=== PATIENT | male | born 1965 | race African-American/Black ===

== ENCOUNTER → 2023-05-05 11:51 | Outpatient (REF) | payer OTHER, SELFPAY | LOC: HWRAD 11:51 | PROVIDERS: ATTENDING PHYSICIAN Student in an Organized Health Care Education/Training Program | DX: M25.532 Pain in left wrist (principal) | CPT/HCPCS: 73090; 73110 ==

== ENCOUNTER → 2024-01-11 08:13 | Outpatient (REF) | payer MEDICARE, OTHER, SELFPAY | LOC: RCS 08:13 | PROVIDERS: ATTENDING PHYSICIAN Internal Medicine Cardiovascular Disease; FAMILY PHYSICIAN Student in an Organized Health Care Education/Training Program | DX: I10 Essential (primary) hypertension (principal); I50.20 Unspecified systolic (congestive) heart failure | CPT/HCPCS: 93306 ==

== ENCOUNTER 2024-07-02 18:26 | Inpatient (IN) | payer MEDICARE, SELFPAY ==
[2024-07-02] VITALS (13 sets, daily range): BP systolic 160–198; BP diastolic 91–128; BMI 32.3; BMI 32.0
--- NOTE | 2024-07-02 13:41 | ED.GENMED ---
History of Present Illness
General
Chief Complaint: Change in Mental Status
Source: patient
Exam Limitations: none
Time Seen by Provider: 07/02/24 13:37
History of Present Illness
History of Present Illness:
See MDM
Past History
Past History
ED Past Medical History: CVA and HTN
ED Past Surgical History: Orthopedic
Social History
Tobacco: Non-smoker
Living: with family
Employment: Employed
Family History
Family History: Hypertension
Phy Exam
Physical Exam
Physical Exam:
See MDM
Course
Orders/Labs/Results
Orders:
Orders
07/02/24 13:11
Electrocardiogram (*1) Urgent
Reason for Study: Other
Other Reason for Exam: Possible Stroke
EKG- Treatment ONCE
07/02/24 13:33
CT Head W/o Iv Contrast Urgent
Comment:
Reason For Exam: change of mental
07/02/24 13:56
CPK [Creatine Phosphokinase] Urgent
Complete Blood Count/With Diff Urgent
Comprehensive Metabolic Panel Urgent
NT-proBNP Urgent
Comment: ADD ON
PTT Urgent
Prothrombin Time Urgent
Troponin I Urgent
07/02/24 14:37
CR Chest Portable - 1 View Urgent
Comment:
Reason For Exam: weakness, fatigue
Reason Study Needs to be Portable: Unable to Transport
07/02/24 14:38
Add On- LAB Urgent
Tests Added?: pro-BNP
07/02/24 14:43
Case Management Consult ONCE
Case Management Consult: Discharge Planning
Urinalysis Reflex To Culture Urgent
Date Specimen was Collected: 07/02/24
Time Specimen was Collected: 14:56
Abnormal Lab Results
07/02/24
13:56
MCHC 32.4 L g/dL
(33.0-37.0)
Absolute Neuts (auto) 6.8 H 10^3/uL
(1.4-6.5)
Lymphocytes % 17.5 L %
(20.5-51.1)
Chloride 110 H mmol/L
(98-107)
BUN 29 H mg/dl
(9-20)
Creatinine 3.7 H mg/dL
(0.7-1.3)
Calcium 10.6 H mg/dl
(8.4-10.2)
Total Bilirubin 1.4 H mg/dl
(0.2-1.3)
Alkaline Phosphatase 132 H U/L
(38-126)
Creatine Kinase 495 H U/L
(55-170)
Troponin I 0.056 H* ng/ml
07/02/24 13:56
07/02/24 13:56
Vital Signs
Initial and Last Documented VS:
Initial Vital Signs
Temp Pulse Resp BP Pulse Ox
98.5 F 108 20 182/120 99
07/02/24 13:05 07/02/24 13:05 07/02/24 13:05 07/02/24 13:05 07/02/24 13:05
Last Documented Vital Signs
Temp Pulse Resp BP Pulse Ox
97.6 F 97 15 182/112 98
07/02/24 13:56 07/02/24 14:00 07/02/24 14:00 07/02/24 13:56 07/02/24 14:00
MDM/Problems Addressed
Differential Diagnosis Includes:
HPI and MDM Narrative:
58-year-old male presenting for evaluation of frequent falls. Patient lives alone and apparently had 4 falls overnight. Patient is dismissing his symptoms. He denies any complaints. Patient states his friend is overreacting. On exam, there is
no evidence of trauma. Patient does have difficulty ambulating with his cane but states this is his baseline. Given his history, will obtain CT head and will obtain basic blood work
Physical exam
General: Well appearing and non-toxic
HEENT: protecting airway. Atraumatic
Neck: supple
CV: No evidence of cyanosis. Regular rate and rhythm
Resp: No accessory muscle use
Abd: Non-distended
Extremities: No deformities
Neuro: alert. Significant weakness to left arm and left leg which patient states is chronic
Psych: Normal affect
Skin: Intact
Problems Addressed including Acute and Chronic Conditions affecting care:
1. Frequent falls and weakness
Acuity: acute
Prognosis: stable
Details: Given prior history of stroke, will obtain CT head. Will obtain basic blood work
Updates
Patient found to have an elevated troponin. Prior records indicate is been elevated in the past when he was diagnosed with flash pulmonary edema. Will obtain chest x-ray.
His cousin is at bedside indicating that he has been more forgetful and weaker than normal
Chest x-ray clear. No evidence of pulmonary edema. Troponin likely elevated from CKD
Differential Diagnosis (but not limited to): Recurrent stroke, intracranial hemorrhage, deconditioning
Testing considered: Urinalysis but he denies symptoms
Drug therapy (if applicable): OTC meds, please see d/c instruction regarding Rx drugs
Amount and/or Complexity of Data Reviewed
Clinical info obtained from: Patient
External data reviewed: N/A
Labs I independently reviewed (but not limited to): Baseline CKD. Mild troponin elevation
Radiology: N/A
Pulse Ox: not hypoxic
EKG independently reviewed: Sinus tachycardia, left axis, no STEMI
Creative Art Therapist: Sinus rhythm
Critical Care: N/A
Risk of Complication:
Social Determinants of health: Good social support
Discussed with other providers: Hospitalist
Escalation of Care includes Admit/Obs: Given his prior strokes with new onset weakness, will admit for further workup
Occasional wrong word or 'sound a like' substitutions may have occurred due to the inherent limitations of voice recognition software. Read the chart carefully and recognize, using context, where substitutions have occurred.
*Critical Care Note
Total Time (30-74mins, 75-104mins- exclusive of procedures): Not Applicable
ED Attending Note
-
Portions of this chart may have been created with voice recognition software.� Occasional wrong word or��sound alike� substitutions may have occurred due to the inherent limitations of voice recognition software.
Discharge Plan
Departure
Patient Disposition: Admit
Date of Disposition: 07/02/24
Time of Disposition: 16:04
Admit to: Med/Surg
Presentation/result/management discussed w/ accepting MD/DO: Hospitalist
Discharge Problem:
Weakness, CKD (chronic kidney disease)
Prescriptions:
No Action
isosorbide mononitrate 30 mg Tablet Extended Release 24 Hr
30 mg PO DAILY Qty: 30 3RF
atorvastatin 40 mg Tablet
40 mg PO DAILY Qty: 30 3RF
carvedilol 25 mg Tablet
25 mg PO BID Qty: 60 3RF
amlodipine 10 mg tablet
10 mg PO DAILY Qty: 30 3RF
hydralazine 100 mg tablet
100 mg PO TID Qty: 90 3RF
aspirin 81 mg Tablet,Chewable
81 mg PO DAILY Qty: 30 3RF
potassium chloride 20 mEq Tablet Extended Release
20 meq PO DAILY
furosemide [Lasix] 40 mg tablet
80 mg PO BID
Referrals:
NONE,* [Family Provider] -
Interventions
Interventions:
*Risk Screen - Suicide Last Done: 07/02/24 13:05
*General Assessment Last Done: 07/02/24 13:05
*Neglect/Abuse Screening Last Done: 07/02/24 13:56
*ED- Fall Risk Assessment Last Done: 07/02/24 13:56
*ED COVID-19 Vaccine History Last Done: 07/02/24 13:56
ED- Pulmonary Assessment Last Done: 07/02/24 13:56
ED-Psychological Assessment Last Done: 07/02/24 13:56
ED- Neurological Assessment Last Done: 07/02/24 13:56
ED- Cardiac Assessment Last Done: 07/02/24 13:56
ED Swallowing Screen Last Done: 07/02/24 13:56
Discharge Date and Time
Print Language: MALTESE
[2024-07-02 14:08] LABS: % Basophils 0.7 % (0-2); % Eosinophils 1.4 % (0-6); % Immature Granulocytes 0.2 % (0-0.5); % Lymphocytes 17.5 % (20.5-51.1); % Monocytes 5.7 % (1.7-9.3); % Neutrophils 74.5 % (42.2-75.2); Absolute Basophils 0.1 10^3/uL (0-0.2); Absolute Eosinophils 0.1 10^3/uL (0-0.7); Absolute Lymphocytes 1.6 10^3/uL (1.2-3.4); Absolute Monocytes 0.5 10^3/uL (0.1-0.6); Absolute Neutrophils 6.8 10^3/uL (1.4-6.5); Hematocrit 44.7 % (39.0-52.0); Hemoglobin 14.5 g/dL (13.0-18.0); Mean Corp Hgb Conc. 32.4 g/dL (33.0-37.0); Mean Corpuscular Hgb 28.9 pg (27.0-31.0); Mean Platelet Volume 10.2 fL (7.4-10.4); Nucleated Red Blood Cells % 0 % (-); Platelet Count 235 10^3/uL (130-400); Red Blood Cell Count 5.02 10^6/uL (4.70-6.10); White Blood Cell Count 9.1 10^3/uL (4.8-10.8)
[2024-07-02 14:12] LABS: INR 0.99; PT 13.4 Sec (11.4-14.6)
[2024-07-02 14:13] LABS: APTT 26.6 Sec (23.4-35.0)
[2024-07-02 14:23] LABS: ALT (SGPT) 21 U/L (0-50); AST (SGOT) 35 U/L (17-59); Albumin 4.2 g/dl (3.5-5.0); Alkaline Phosphatase 132 U/L (38-126); Blood Urea Nitrogen 29 mg/dl (9-20); Calcium 10.6 mg/dl (8.4-10.2); Carbon Dioxide 26 mmol/L (22-30); Chloride 110 mmol/L (98-107); Creatine Phosphokinase 495 U/L (55-170); Estimated Creatinine Clearance 28 ml/min; Glucose 94 mg/dl (70-99); Potassium 3.7 mmol/L (3.5-5.1); Sodium 143 mmol/L (135-145); Total Bilirubin 1.4 mg/dl (0.2-1.3); Total Protein 7.8 g/dl (6.3-8.2); eGFR 18.15
[2024-07-02 14:31] LABS: Troponin I 0.056 ng/ml
[2024-07-02 15:15] LABS: NT-proBNP 7550 pg/ml
--- NOTE | 2024-07-02 15:19 | EDRN ---
the provider Dr. Hudson was notified of the pts elevated blood pressure
--- NOTE | 2024-07-02 15:57 | EDRN ---
Dr. Hudson currently at the [facility] bedside
--- NOTE | 2024-07-02 15:58 | CM ---
Initial assessment completed with patient and his cousin/primary contact, Marky Rodriguez #[phone]
Health insurance ; spoke with Jessenia in [place]; she will meet with patient's cousin, Marky
Pharmacy verified: [facility] @ [address] [place] [address], [facility]
Family Physician verified: Oh Ellis MD; [address] [place] [address], [address], [place], [place]; phone #[phone]
Patient lives alone in attached one floor in-law suite of his Aunt's home (she is listed as Secondary Contact); independent with ADLs; ambulates with a single point cane; no other DME
[place]ute rehab [place] of state stays after Stroke [phone]; outpatient therapy @ [facility]; has had home health/VN in 2023 that was sent by insurance company
Cousin reported that patient has renal disease;needed Peritoneal Dialysis last year; patient still urinates
Cousin will transport home
Discharge Plan to be determined; need PT/OT to assess patient
[2024-07-02 16:24] LABS: Urine Albumin 4+ (Neg - Trace); Urine Bilirubin Negative (Negative); Urine Character Clear (Clear); Urine Color Yellow; Urine Glucose Negative (Negative); Urine Ketone Negative (Negative); Urine Leukocyte Negative (Negative); Urine Nitrite Negative (Negative); Urine Occult Blood 3+ (Negative); Urine Urobilinogen Negative (Neg - 1+)
[2024-07-02 16:34] LABS: Urine Bacteria Few (Negative); Urine Red Blood Cell 0-2 /HPF (0-2); Urine Squamous Cell 0-2 /LPF (Few); Urine White Cell 0-2 /HPF (0-5)
--- NOTE | 2024-07-02 17:00 | HPS.HSE ---
Family Physician
-
Family Physician: * NONE
Chief Complaint
-
Falls, ran out of all of his medications due to inability to pay
History of Present Illness
58-year-old male from home where he lives alone and has had 4 falls overnight. His friend is the one making him come to the ER for evaluation he feels it is not that big of a deal however he has had history in the past of prior strokes with
residual left-sided weakness in 2019 at that time he qualified for Social Security disability however he cashed in a 401K from his job last year this put him over the amount to qualify for his 20% Medicaid therefore making his medications that he
needs for his chronic medical conditions unaffordable. He ran out of his medications including Imdur, Lasix, hydralazine, carvedilol, Norvasc for the past month. He did the same thing back in November and went up and flash pulmonary edema. I
have a group sales manager in their giving him papers to apply for permanent disability as now his income would be less than $2000 per month he should qualify for Medicaid to cover his prescriptions. I made it very clear to the patient running out of
medications can easily cause another stroke or flash pulmonary edema for him. He remembers falling yesterday only 1 he states he slipped out of the chair and called his cousin who lives in the same house. He lives in the [id number] suite that
was built on 4 the prior [id number]. The patient has impaired memory of the other 3 falls he told his friend. He is oriented to name, year, president however will speak very soft mumbles has significant short-term memory impairment is
unable to tell me anything that happened yesterday. He denies current headache, chest pain, palpitations, cough, shortness of breath, abdominal pain, nausea, vomiting, diarrhea, urinary symptoms.
He has patient has past medical history of flash pulmonary edema due to acute systolic and diastolic heart failure November 2022, CKD stage IV from hypertensive nephrosclerosis, non ischemic myocardial injury with elevated troponin, chronic anemia
iron deficiency, HTN.
Medical History
Past Medical History
Past Medical History: Reports Other
Additional Past Medical History:
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
flash pulmonary edema due to acute systolic and diastolic heart failure November 2022
CKD stage IV from hypertensive nephrosclerosis
non ischemic myocardial injury with elevated troponin
chronic anemia iron deficiency
HTN
Past Surgical History: Reports None
Social History
Tobacco: Non-smoker
Alcohol: None
Drug: None
Personal:
Living: Alone (Lives in [id number] suite at his cousins)
Employment: Disabled (As of 2019)
Family History
Family History: Other (Mother and father both alcoholics and smokers both , 1 brother renal failure, hypertension in his 40s 1 brother living unsure medical problems patient with 3 adult children 2 girls 1 boy healthy)
Allergies / Home Medications
Allergies reflects when Allergies were last updated in [employer].
Home Medications with original date entered in [employer]
Allergy/Medication List:
Allergies
Allergy/AdvReac Type Severity Reaction Status Date / Time
No Known Allergies Allergy Unverified 07/02/24 13:07
Home Medications
amlodipine 10 mg tablet 10 mg PO DAILY Blood Pressure #30 tabs 12/02/22
aspirin 81 mg chewable tablet 81 mg PO DAILY Blood Clot Prevention/Tx #30 tabs 12/02/22
atorvastatin 40 mg tablet 40 mg PO DAILY High Cholesterol #30 tabs 12/02/22
carvedilol 25 mg tablet 25 mg PO BID Blood Pressure #60 tabs 12/02/22
hydralazine 100 mg tablet 100 mg PO TID Blood Pressure #90 tabs 12/02/22
isosorbide mononitrate 30 mg tablet,extended release 24 hr 30 mg PO DAILY #30 tabs 12/02/22
furosemide 40 mg tablet (Lasix) 80 mg PO BID 07/02/24
potassium chloride 20 mEq tablet,extended release 20 meq PO DAILY 07/02/24
Review of Systems
-
History Source: Patient
A 12 point ROS was completed and negative except as noted: Yes
Constitutional: Reports Other (Short-term memory impairment cannot recall what happened yesterday unsure if this is from prior stroke or new); Denies Fever or Chills
EENT: Denies Sore Throat or Runny Nose
Respiratory: Denies Cough or Trouble Breathing
Cardiac: Denies Chest Pain, Palpitations or Syncope
Abdomen/GI: Denies Abdominal Pain, Nausea, Vomiting, Diarrhea, Constipated, Bloody Stools or Black Stools
: Denies Dysuria, Frequency, Flank Pain, Incontinence, Difficulty Voiding, Urgency, Bleeding or Dark Urine
Musculoskeletal: Reports Edema (Left lower extremity edema +2 in stroke leg with limited movement compared to right unsure of old or new); Denies Joint Pain
Skin: Denies Itching or Rash
Neurological: Reports Weakness (Chronic left-sided left arm limited to shoulder with spastic movements left leg can lift off of bed with very intense spastic movements at 10 degrees); Denies Dizzy or Headache
Endocrine: Reports No Symptoms
Hematologic/Lymphatic: Reports No Symptoms
Psych: Reports Calm
Physical Exam
Vital Signs
Vital Signs
Temp Pulse Resp BP Pulse Ox
97.6 F 97 15 182/112 98
07/02/24 13:56 07/02/24 14:00 07/02/24 14:00 07/02/24 13:56 07/02/24 14:00
Physical Exam
General: Comfortable and Conversant; No Pain, Fever or Chills
HEENT: NormoCephalic, Anicteric, Moist mucous membranes, PERRLA, [place] Conjunctivae and No Ptosis
Respiratory: Clear; No Wheezes, Rales or Rhonchi
Cardiac: S1/S2, Regular Rhythm and Peripheral Edema (Left leg +2, right leg none); No Murmur, Rub or Gallop
Breast: Deferred by me
GI: Soft, Non Tender, Non Distended, Normal Bowel Sounds and No Hepatosplenomegaly
Rectal: Deferred by Provider
Genito-urinary: Deferred by me
Musculoskeletal: No Clubbing, No Cyanosis and Other (Left leg edema +2 compared to right leg unsure of old or new, chronic left-sided left arm limited to shoulder with spastic movements left leg can lift off of bed with very intense spastic
movements at 10 degrees)
Skin: Warm and Dry
Neuro: Awake, Alert, Oriented (To name, president, place but not all of history not what happened yesterday unsure of review of systems and past medical history), Cranial Nerves Intact, No Sensory Deficits and Other (Chronic left-sided left arm
limited to shoulder with spastic movements left leg can lift off of bed with very intense spastic movements at 10 degrees); No Slurred Speech, Facial Droop or Tremors
Psych: Calm
Laboratory Results
-
07/02/24 13:56
07/02/24 13:56
Laboratory Results
PT 13.4 Sec (11.4-14.6) 07/02/24 13:56
INR 0.99 07/02/24 13:56
APTT 26.6 Sec (23.4-35.0) 07/02/24 13:56
Total Bilirubin 1.4 mg/dl (0.2-1.3) H 07/02/24 13:56
AST 35 U/L (17-59) 07/02/24 13:56
ALT 21 U/L (0-50) 07/02/24 13:56
Alkaline Phosphatase 132 U/L (38-126) H 07/02/24 13:56
Troponin I 0.056 ng/ml H* 07/02/24 13:56
Data Reviewed
-
CT Scan: Report Reviewed by me
Lab Data: Labs Reviewed by me
Impression/Plan
-
Impression/plan:
Admit to telemetry
#Falls x 4 unclear concern for possible stroke
- Orthostatic vitals
- MRI brain concern for strokes
- PT/OT consult
Case management working on giving patient reapplication for permanent disability to give to his PCP
CT head:No acute intracranial infarction or hemorrhage.
Periventricular deep white matter hypodensity and prominence of the ventricles, cisterns and sulci greater than expected for age, but most likely chronic.
#CVA affecting left side body 2020 with chronic ambulatory dysfunction using quad cane
Limited movement left arm to shoulder level, chronic left leg swelling with limited movement, spastic movement left upper arm and left lower leg
- Continue aspirin 81 mg daily, atorvastatin 40 mg daily
#Hypertensive urgency due to med noncompliance
-No history of FREDY during workup in November 2022
BP 182/112
-Will give carvedilol 25 mg now, Norvasc 10 mg now, hydralazine 100 mg
- Ran out of hydralazine, carvedilol, Norvasc, Imdur -1 month ago unable to afford due to cost
# CKD stage IV, possibly from hypertensive nephrosclerosis.
# November 2022 secondary hypertension work up was ordered per Renal (metanephrine, dopamine level, electrophoresis, renal artery duplex no evidence of FREDY).
Creat 3.7 prior is 3.3 on 12/02/22( July 2.25 jul 2021)
- Hold Lasix
- Follow BMP in a.m.
#Left leg swelling concern for DVT
- Check venous Doppler
#Hx Flash pulmonary edema due to chronic systolic and diastolic heart failure was due to running out of meds
This was associated with non-[place] troponin elevation and required BiPAP.
- cont Imdur 30 mg daily , hydralazine 100 mg tid, carvedilol, 25 mg bid , norvasc 10 mg daily
-Hold Lasix 80 twice daily due to creat
CXR: Low lung volumes, no acute cardiopulmonary process
ECHO 01/11/24 : Ef 56%, no wall abnormalities nml diastolic, mild lvf , no valvular pathology
Echo 11/30/2022 showed Global hypokinesis, EF 39%, Stage III diastolic dysfunction, Moderate mitral regurgitation and estimated pulmonary artery pressure of 55-60 mmHg.
#Chronic anemia
#Hx iron def anemia- received Iv iron duing that stay
The patient's hemoglobin has been stable at around hgb 14.3
DVT prophylaxis
SCDs
Full code
--- NOTE | 2024-07-02 18:06 | EDRN ---
Dr. Hudson has been notified of consistently elevated blood pressures
--- NOTE | 2024-07-02 18:08 | EDRN ---
hospitalist Dr. Benton currently at the pts bedside and this RN notified the provider of the pts consistently elevated blood pressures
--- NOTE | 2024-07-02 18:21 | W.PN.UPDATE ---
Update Note
Progress Note Update
This is an addendum to the H&P written by Promise Leyva on 07/02/2024. Patient seen examined independently with [facility] REPAIRER.
58-year-old male past medical history of CHF, hypertension, hyperlipidemia, CKD 4, anemia, CVA in 2020 with short-term memory impairment, left-sided weakness and spasticity, diet controlled type 2 diabetes, presenting with 4 falls since yesterday.
Patient not taking his medications due to inability to afford due to lack of Medicaid coverage. He denies any neurological complaints, headache, chest pain or shortness of breath.
Blood pressure 182/120.
Left lower extremity much more swollen than the right.
Labs show creatinine of 3.7 from 3.3. Cardiac BNP of 7500.
CT head shows no acute abnormality. Chest x-ray shows no acute cardiopulmonary process.
Concern for multiple falls unclear etiology. Check orthostatic vital signs, check MRI brain to evaluate for worsening strokes. Hypertensive urgency secondary to medication noncompliance. Resume oral antihypertensive medications. Patient has
slight worsening of kidney function likely due to worsening hypertensive nephrosclerosis. Hold Lasix for now.
Check venous ultrasound due to asymmetric left lower extremity swelling.
PT OT, case management for medication coverage.
--- NOTE | 2024-07-02 18:36 | EDRN ---
per Dr. Benton the pt is to have PO antihypertensive medication before IV antihypertensive medication due to 'the pt is non compliant with his meds so he should have PO first'
[2024-07-02] MEDS: APRESOLINE 100 MG PO (18:45)
[2024-07-02] MEDS: ASPIR LOW (ENTERIC COATED) 81 MG PO (18:45)
[2024-07-02] MEDS: LIPITOR 40 MG PO (20:05)
[2024-07-02] MEDS: COREG 25 MG PO (20:06)
[2024-07-02] MEDS: NORVASC 10 MG PO (20:06)
--- NOTE | 2024-07-02 21:02 | W.PN.UPDATE ---
Update Note
Progress Note Update
Problem list addendum:
Patient now remembering he is end-stage renal disease patient on peritoneal dialysis
- Review of outpatient records shows an entry admission of below:
-CONSULT NEPHRO
-Creat 3.7 was increased from 3 .3 on 12/02/2022
Dec, 2023 ESRD (end stage renal disease) (ICD-10 - N18.6) Now on peritoneal dialysis. He is also considering renal transplant. His brother has offered to be a live donor. Workup ongoing with nephrology and transplant team at [facility]. His
online content coordinator is Massiel , fax Echocardiogram shows normalization of ejection fraction with better blood pressure control. Patient had no significant coronary artery disease on catheterization in 2021.Patient is
stable from cardiac standpoint to proceed with workup for renal transplant.
--- NOTE | 2024-07-02 22:30 | PTCARENOTE ---
Pt admitted to 409-2, pulled over to bed. AAOx3. Able to make needs known, bed alarm placed due to history of falls. Call brownlee within reach.
[2024-07-02] MEDS: HEPARIN 5000 UNITS SC (22:54)
[2024-07-02] MEDS: APRESOLINE 10 MG IV (23:46)
[2024-07-03] VITALS (8 sets, daily range): BP systolic 121–170; BP diastolic 67–91; PULSE 74–78; BMI 32.0
[2024-07-03 08:12] LABS: % Basophils 0.3 % (0-2); % Eosinophils 0.3 % (0-6); % Immature Granulocytes 0.3 % (0-0.5); % Lymphocytes 13.2 % (20.5-51.1); % Monocytes 4.3 % (1.7-9.3); % Neutrophils 81.6 % (42.2-75.2); Absolute Lymphocytes 0.9 10^3/uL (1.2-3.4); Absolute Monocytes 0.3 10^3/uL (0.1-0.6); Absolute Neutrophils 5.5 10^3/uL (1.4-6.5); Hematocrit 41.9 % (39.0-52.0); Hemoglobin 13.6 g/dL (13.0-18.0); Mean Corp Hgb Conc. 32.5 g/dL (33.0-37.0); Mean Corpuscular Hgb 28.9 pg (27.0-31.0); Nucleated Red Blood Cells % 0 % (-); Platelet Count 204 10^3/uL (130-400); Red Blood Cell Count 4.71 10^6/uL (4.70-6.10); Red Cell Dist. Width 13.7 % (11.5-14.5); White Blood Cell Count 6.8 10^3/uL (4.8-10.8)
--- NOTE | 2024-07-03 08:41 | W.PN.HOSP.TC ---
Addendum entered and electronically signed by Reymundo Corcoran MD 07/03/24 17:20:
CKD stage 5, correction-->not on PD--> nephrology looking into that.
Addendum entered and electronically signed by Reymundo Corcoran MD 07/03/24 17:14:
no need for mri per neurology
Original Note:
Today's Communication/Plan
-
Neurology eval
Assessment / Plan
Assessment / Plan
Physical exam:
General: Chronically ill
HEENT: Normocephalic, Atraumatic and Moist Mucous Membranes
Respiratory: Clear to Auscultation; Negative Wheezes, Rales or Rhonchi
Cardiac: Regular Rhythm and S1/S2
GI: Soft, Nontender and Nondistended
Musculoskeletal: No Clubbing, No Cyanosis and No Edema
Neuro: Awake, Alert and Oriented, left chronic hemiparesis present.
Psych: Calm
A/P:
Multiple falls and ambulatory dysfunction:
Concerns for recrudescence of stroke or new stroke or HTN related versus other etiologies
Neurology consult-discussed with neurology via [place] text
On aspirin and statin
Brain MRI ordered upon admission-will discuss with neurology if this is required in the setting of our machine being broken down and there are some delays in this setting.
Updated daughter over the phone today
Hypertensive urgency:
Blood pressure improved
Continue Coreg, hydralazine, Imdur, hydralazine
Monitor blood pressure closely and adjust medications accordingly
End-stage renal disease on peritoneal dialysis:
Nephrology consult
PD per nephrology
History of CVA with left hemiparesis:
On antiplatelet and statin
History of chronic diastolic CHF:
Managing volume with PD
Prior systolic dysfunction but improved.
Hyperlipidemia:
Continue atorvastatin 40 mg p.o. daily
DVT prophylaxis:
Heparin SQ
CODE STATUS:
Full code
Total time spent on today's encounter was 52 minutes which included time spent in counseling the patient/family regarding diagnosis and treatment plan as listed above, goals of care, and symptom management. Case was discussed with nursing staff,
specialists, and care coordinators/case management. All labs and imaging personally reviewed by me. Remainder the time spent in detailed review of previous records, lab data, imaging, and other medical provider documentation.
Anticipated Discharge: 24 - 48 hours
Subjective/Interval History
-
Date of Service: July 03, 2024
No worsening weakness. Blood pressure stable. Afebrile
Objective Data
-
Labs:
Laboratory Results
07/03/24
06:53
WBC 6.8
Hgb 13.6
Hct 41.9
Plt Count 204
Sodium Pending
Potassium Pending
Chloride Pending
Carbon Dioxide Pending
BUN Pending
Creatinine Pending
Glucose Pending
Calcium Pending
Total Bilirubin Pending
AST Pending
ALT Pending
Alkaline Phosphatase Pending
Vital Signs:
Vital Signs
Temp Pulse Resp BP Pulse Ox
98.3 F 79 20 170/89 99
07/03/24 07:31 07/03/24 07:31 07/03/24 07:31 07/03/24 07:31 07/03/24 07:31
I&O
07/02/24 07/03/24 07/04/24
06:59 06:59 06:59
Intake Total 240 / 240
Output Total 650 / 650
Balance -410 / -410
[2024-07-03 08:49] LABS: ALT (SGPT) 18 U/L (0-50); AST (SGOT) 30 U/L (17-59); Albumin 3.9 g/dl (3.5-5.0); Alkaline Phosphatase 112 U/L (38-126); Blood Urea Nitrogen 33 mg/dl (9-20); Calcium 10.4 mg/dl (8.4-10.2); Carbon Dioxide 24 mmol/L (22-30); Chloride 107 mmol/L (98-107); Estimated Creatinine Clearance 26 ml/min; Glucose 124 mg/dl (70-99); HDL Cholesterol 55 mg/dl; LDL Cholesterol, Calculated 103 mg/dl; Potassium 3.6 mmol/L (3.5-5.1); Sodium 143 mmol/L (135-145); Total Bilirubin 1.5 mg/dl (0.2-1.3); Total Cholesterol 168 mg/dl (50-199); Total Protein 6.9 g/dl (6.3-8.2); Triglyceride 51 mg/dl (10-149); Very Low Density Lipoprotein 10 mg/dl (0-30); eGFR 17.04
[2024-07-03] MEDS: HEPARIN 5000 UNITS SC ×2 (09:17→21:11)
[2024-07-03] MEDS: NORVASC 10 MG PO (09:18)
[2024-07-03] MEDS: LOW STRENGTH ASPIRIN 81 MG PO (09:18)
[2024-07-03] MEDS: COREG 25 MG PO ×2 (09:18→21:10)
[2024-07-03] MEDS: IMDUR (EXTENDED RELEASE) 30 MG PO (09:18)
[2024-07-03] MEDS: LIPITOR 40 MG PO (09:18)
[2024-07-03] MEDS: APRESOLINE 100 MG PO ×3 (09:19→22:59)
--- NOTE | 2024-07-03 16:03 | W.CON.NEPH ---
Addendum entered and electronically signed by Vita Tijerina MD 07/03/24 16:51:
no emergent need of [employer]
will wait for records
Original Note:
Consultation
-
Date/Time Consultation Requested: 07/02/242229
Date/Time Consultation Performed: 07/03/24 1430
Requesting Provider: Forrest Judge
Performing Provider: Vita Vaughan
Reason for Consultation: CKD 4vs 5
Medical History
-
Chief Complaint: Falls at home and ran out of meds
History of Present Illness:
58-year-old male with PMH of HTN on Amlodipine, coreg, hydralazine, cardiomyopathy recovered EF on lasix, CVA with residual left hemiparesis, DM not on meds, HLD on statin presented from home for recurrent 4 falls overnight. Reportedly he lives
alone and his friend made him to come to the ER for evaluation. Due to his insurance coverage issues reports unable to fill his medications for past month. He does not know when was the last time he took meds. HIs BPs were high in 180 range on
admit. He also reportedly was on PD and has been off since February 2024-I do not have records to review this, he still has PD catheter. he reportedly seen by Nephro at [place] and even had eval for transplant too on reviewing records from [facility].
Reportedly similar presentation in the past Sep where he noted to have flash pulmonary edema. The patient has impaired memory so history is obtained through the chart and very little from pt. He denies current headache, chest pain, palpitations,
cough, shortness of breath, abdominal pain, nausea, vomiting, diarrhea, urinary symptoms. His cr on admit was at 3.7 and today at 3.9. Last cr 3.3 in 05/2023. nephrology asked to eval CKD.
Past Medical History
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
flash pulmonary edema due to acute systolic and diastolic heart failure November 2022
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
Cardiomyopathy
CHF recovered EF
HLD
DM
SHPTH
chronic anemia iron deficiency
HTN
Past Surgical History: Cholecystectomy and Other (left heart cath 2021)
Social History
Tobacco: Non-Smoker
Alcohol: None
Drug: None
Personal:
Living: Alone (Lives in [address] at his cousins)
Employment: Disabled
Family History
Mother and father both alcoholics and smokers both , 1 brother renal failure, drug abuse, hypertension in his 40s 1 brother living unsure medical problems patient with 3 adult children 2 girls 1 boy healthy
Allergies / Home Medications
Allergy/AdvReac Type Severity Reaction Status Date / Time
No Known Allergies Allergy Unverified 07/02/24 13:07
�Medication �Instructions �Recorded �Confirmed �Type
amlodipine 10 mg tablet 10 mg PO DAILY Blood Pressure #30 12/02/22 07/02/24 Rx
tabs
aspirin 81 mg chewable tablet 81 mg PO DAILY Blood Clot 12/02/22 07/02/24 Rx
Prevention/Tx #30 tabs
atorvastatin 40 mg tablet 40 mg PO DAILY High Cholesterol 12/02/22 07/02/24 Rx
#30 tabs
carvedilol 25 mg tablet 25 mg PO BID Blood Pressure #60 12/02/22 07/02/24 Rx
tabs
hydralazine 100 mg tablet 100 mg PO TID Blood Pressure #90 12/02/22 07/02/24 Rx
tabs
isosorbide mononitrate 30 mg 30 mg PO DAILY #30 tabs 12/02/22 07/02/24 Rx
tablet,extended release 24 hr
furosemide 40 mg tablet (Lasix) 80 mg PO BID 07/02/24 07/02/24 History
potassium chloride 20 mEq 20 meq PO DAILY 07/02/24 07/02/24 History
tablet,extended release
Review of Systems
-
unable to obtain, pt memory impairment
Physical Exam
Vital Signs
Vital Signs
Temp Pulse Resp BP Pulse Ox
98.4 F 81 18 122/79 98
07/03/24 15:06 07/03/24 15:06 07/03/24 15:06 07/03/24 15:06 07/03/24 15:06
Lab Results
WBC 6.8 10^3/uL (4.8-10.8) 07/03/24 06:53
RBC 4.71 10^6/uL (4.70-6.10) 07/03/24 06:53
Hgb 13.6 g/dL (13.0-18.0) 07/03/24 06:53
Hct 41.9 % (39.0-52.0) 07/03/24 06:53
Plt Count 204 10^3/uL (130-400) 07/03/24 06:53
Sodium 143 mmol/L (135-145) 07/03/24 06:53
Potassium 3.6 mmol/L (3.5-5.1) 07/03/24 06:53
Chloride 107 mmol/L (98-107) 07/03/24 06:53
Carbon Dioxide 24 mmol/L (22-30) 07/03/24 06:53
BUN 33 mg/dl (9-20) H 07/03/24 06:53
Creatinine 3.9 mg/dL (0.7-1.3) H 07/03/24 06:53
eGFR 17.04 07/03/24 06:53
Glucose 124 mg/dl (70-99) H 07/03/24 06:53
Calcium 10.4 mg/dl (8.4-10.2) H 07/03/24 06:53
Nbh-Y-Wuhptudllrv Pept 7550 pg/ml 07/02/24 13:56
Albumin 3.9 g/dl (3.5-5.0) 07/03/24 06:53
Physical Exam
General: Awake, Alert, Oriented, No Distress and Nontoxic
HEENT: EOMI, Anicteric and Neck Supple
Respiratory: Clear, Normal Excursion and Nonlabored Respirations
Cardiac: S1/S2 and Regular Rate/Rhythm
Breast: Deferred by me
Abdomen: Soft, Nontender and Nondistended
Musculoskeletal: Edema (1+ left>right)
Skin: No Rash
Neuro: Other (left hemiparesis)
Psych: Appropriate
Vascular Access: Other (PD catheter, small scab seem old. No erythema or drainage )
Assessment/Plan
-
IMP:
Multiple falls and ambulatory dysfunction
Hypertensive urgency
CKD5-was on PD not actively receiving per history since Feb , was at [facility]
End-stage renal disease on peritoneal dialysis:
History of CVA with left hemiparesis
History of chronic diastolic CHF
Hyperlipidemia
mild hypercalcemia
h/o SHPTH
PD catheter left abd
plan:
A/w multiple falls at home prior CVA with amb dysfunction
also ran out of meds due to insurance coverage issues
CKD likely 5, was on PD for few months what it seem to be however I do not have details of it
will need records from [facility] Dr Eden -requested
monitor cr and UOP, ok to resume lasix
possible chr LE edema , no DVT on US
Bp improved after resuming meds
mild hypercalcemia-check PTH, not on erlin meds
monitor labs and wts
neuro eval
left VM on daughter phone
d/w nursing
--- NOTE | 2024-07-03 17:09 | CON.NEURO ---
Neuro Assessment/Plan
Assessment
Head CT imgs reviewed, extensive microvascular changes, chronic stroke right external capsule
Stroke, chronic left spastic alfredo, worsening weakness due to recrudescence of stroke, in the setting of decompensated medical problems from being off his meds
no further workup needed, doubtful of new cerebrovascular event, and even if so, he would still be on the same meds
Plan
no further neuro workup
ASA 81
Lipitor 40
Consultation
Order
Date of Consultation: 07/03/24
Requesting Provider: Reymundo Corcoran
Reason for Consult: acute on chronioc left sided weakness
Subjective/Objective
Subjective Data
Date of Service: July 03, 2024
58-year-old male from home h/o stroke, residual left spastic hemiparesis, presents with multiple falls, ran out of medications x1 month as he recently moved to [place] and had insurance problems. When he presented, his left sided weakness worse than
baseline; He was restarted on his outpatient meds, and this afternoon he reports his left sided weakness is back to baseline.
Objective Data
Vital Signs
Temp Pulse Resp BP Pulse Ox
36.9 C 78 18 144/73 98
07/03/24 15:06 07/03/24 16:42 07/03/24 15:06 07/03/24 16:42 07/03/24 15:06
Lab Results
07/03/24 06:53
07/03/24 06:53
PT 13.4 Sec (11.4-14.6) 07/02/24 13:56
INR 0.99 07/02/24 13:56
APTT 26.6 Sec (23.4-35.0) 07/02/24 13:56
Sodium 143 mmol/L (135-145) 07/03/24 06:53
Potassium 3.6 mmol/L (3.5-5.1) 07/03/24 06:53
BUN 33 mg/dl (9-20) H 07/03/24 06:53
Glucose 124 mg/dl (70-99) H 07/03/24 06:53
Calcium 10.4 mg/dl (8.4-10.2) H 07/03/24 06:53
Vyz-P-Geuogqnjlql Pept 7550 pg/ml 07/02/24 13:56
LDL Cholesterol, Calc 103 mg/dl 07/03/24 06:53
Patient Allergies
No Known Allergies Allergy (Unverified 07/02/24 13:07)
Physical Exam
-
AAOx3, speech clear, language intact, slow to process, short term memory loss
VFF, EOMI
Left spastic hemiparesis.
Medications
-
Active Medications
Generic Name Dose Route Start Last Admin
Trade Name Freq PRN Reason Stop Dose Admin
Acetaminophen 650 mg 07/02/24 22:01
Acetaminophen 325 Mg Tablet PO 07/30/24 22:00
Q4HPRN PRN
mild pain/LIZAMA/temp> 100.4F
Amlodipine Besylate 10 mg 07/03/24 08:00 07/03/24 09:18
Amlodipine 10 Mg Tablet PO 07/31/24 07:59 10 mg
DAILY GLENN Administration
Aspirin 81 mg 07/03/24 08:00 07/03/24 09:18
Aspirin 81 Mg Chewable Tablet PO 07/31/24 07:59 81 mg
DAILY GLENN Administration
Atorvastatin Calcium 40 mg 07/03/24 08:00 07/03/24 09:18
Atorvastatin (Lipitor) 40 Mg Tablet PO 07/31/24 07:59 40 mg
DAILY GLENN Administration
Carvedilol 25 mg 07/03/24 08:00 07/03/24 09:18
Carvedilol 25 Mg Tablet PO 07/31/24 07:59 25 mg
BID GLENN Administration
Heparin Sodium 5,000 units 04/08/25 22:01 07/03/24 09:17
Heparin 5,000 Units/Ml 1 Ml Vial SC 07/30/24 22:00 5,000 units
Q12 GLENN Administration
Hydralazine HCl 10 mg 07/02/24 18:19 07/02/24 23:46
Hydralazine 20 Mg/Ml Vial IV 07/30/24 18:18 10 mg
Q6HPRN PRN Administration
sbp>165 bhanu>110
Hydralazine HCl 100 mg 07/03/24 08:00 07/03/24 16:42
Hydralazine 50 Mg Tablet PO 07/31/24 07:59 100 mg
TID GLENN Administration
Isosorbide Mononitrate 30 mg 07/03/24 08:00 07/03/24 09:18
Isosorbide Mononitrate 30 Mg Extended Release Tablet PO 07/31/24 07:59 30 mg
DAILY GLENN Administration
Sodium Chloride 0 flush 07/02/24 19:00
Sodium Chloride 0.9% (Flush) Syringe IV 07/30/24 18:59
PER PROTOCOL GLENN
Home Medications
�Medication �Instructions �Recorded
amlodipine 10 mg tablet 10 mg PO DAILY Blood Pressure #30 12/02/22
tabs
aspirin 81 mg chewable tablet 81 mg PO DAILY Blood Clot 12/02/22
Prevention/Tx #30 tabs
atorvastatin 40 mg tablet 40 mg PO DAILY High Cholesterol 12/02/22
#30 tabs
carvedilol 25 mg tablet 25 mg PO BID Blood Pressure #60 12/02/22
tabs
hydralazine 100 mg tablet 100 mg PO TID Blood Pressure #90 12/02/22
tabs
isosorbide mononitrate 30 mg 30 mg PO DAILY #30 tabs 12/02/22
tablet,extended release 24 hr
furosemide 40 mg tablet (Lasix) 80 mg PO BID 07/02/24
potassium chloride 20 mEq 20 meq PO DAILY 07/02/24
tablet,extended release
[2024-07-04] VITALS (7 sets, daily range): BP systolic 115–172; BP diastolic 71–119; PULSE 73–94; BMI 31.2
[2024-07-04 06:52] LABS: % Basophils 0.5 % (0-2); % Eosinophils 0.5 % (0-6); % Immature Granulocytes 0.3 % (0-0.5); % Lymphocytes 15.6 % (20.5-51.1); % Monocytes 5.2 % (1.7-9.3); % Neutrophils 77.9 % (42.2-75.2); Absolute Lymphocytes 1.4 10^3/uL (1.2-3.4); Absolute Monocytes 0.5 10^3/uL (0.1-0.6); Absolute Neutrophils 6.9 10^3/uL (1.4-6.5); Hematocrit 39.4 % (39.0-52.0); Hemoglobin 12.7 g/dL (13.0-18.0); Mean Corp Hgb Conc. 32.2 g/dL (33.0-37.0); Mean Corpuscular Hgb 28.5 pg (27.0-31.0); Mean Corpuscular Volume 88.3 fL (80.0-94.0); Mean Platelet Volume 11.2 fL (7.4-10.4); Nucleated Red Blood Cells % 0 % (-); Platelet Count 200 10^3/uL (130-400); Red Blood Cell Count 4.46 10^6/uL (4.70-6.10); Red Cell Dist. Width 13.9 % (11.5-14.5); White Blood Cell Count 8.8 10^3/uL (4.8-10.8)
[2024-07-04 07:28] LABS: Calcium 10.2 mg/dl (8.4-10.2)
[2024-07-04 07:31] LABS: ALT (SGPT) 17 U/L (0-50); AST (SGOT) 29 U/L (17-59); Albumin 3.3 g/dl (3.5-5.0); Alkaline Phosphatase 103 U/L (38-126); Blood Urea Nitrogen 42 mg/dl (9-20); Carbon Dioxide 28 mmol/L (22-30); Chloride 107 mmol/L (98-107); Estimated Creatinine Clearance 22 ml/min; Glucose 110 mg/dl (70-99); Potassium 3.4 mmol/L (3.5-5.1); Sodium 142 mmol/L (135-145); Total Bilirubin 1.1 mg/dl (0.2-1.3); Total Protein 6.3 g/dl (6.3-8.2); eGFR 14.35
[2024-07-04] MEDS: IMDUR (EXTENDED RELEASE) 30 MG PO (08:07)
[2024-07-04] MEDS: APRESOLINE 100 MG PO ×3 (08:07→20:18)
[2024-07-04] MEDS: NORVASC 10 MG PO (08:08)
[2024-07-04] MEDS: HEPARIN 5000 UNITS SC ×2 (08:08→20:17)
[2024-07-04] MEDS: LOW STRENGTH ASPIRIN 81 MG PO (08:09)
[2024-07-04] MEDS: COREG 25 MG PO ×2 (08:09→20:17)
[2024-07-04] MEDS: LIPITOR 40 MG PO (08:09)
--- NOTE | 2024-07-04 08:51 | W.PN.HOSP.TC ---
Today's Communication/Plan
-
Monitor renal function
Assessment / Plan
Assessment / Plan
Physical exam:
General: Chronically ill
HEENT: Normocephalic, Atraumatic and Moist Mucous Membranes
Respiratory: Clear to Auscultation; Negative Wheezes, Rales or Rhonchi
Cardiac: Regular Rhythm and S1/S2
GI: Soft, Nontender and Nondistended
Musculoskeletal: No Clubbing, No Cyanosis and No Edema
Neuro: Awake, Alert and Oriented, left chronic hemiparesis present.
Psych: Calm
A/P:
Multiple falls and ambulatory dysfunction:
Likely due to recrudescence of stroke
Appreciated neurology consult
On aspirin and statin
Brain MRI ordered upon admission-after discussion with neurology no need for MRI.
CT head no acute intracranial normalities.
Updated daughter over the phone yesterday
PT OT eval
manager research and development for discharge disposition
Discharge planning once cleared by nephrology
Chronic kidney disease stage V:
Not on peritoneal dialysis or HD
Renal function worsening today
Nephrology following and awaiting for final determination
Discharge planning once cleared by nephrology
Hypokalemia:
Replete and trend
Hypertensive urgency:
Blood pressure improved
Continue Coreg, hydralazine, Imdur, hydralazine
Monitor blood pressure closely and adjust medications accordingly
History of CVA with left hemiparesis:
On antiplatelet and statin
History of chronic diastolic CHF:
Prior systolic dysfunction but improved.
Monitor volume status
Hyperlipidemia:
Continue atorvastatin 40 mg p.o. daily
DVT prophylaxis:
Heparin SQ
CODE STATUS:
Full code
Anticipated Discharge: 24 - 48 hours
Subjective/Interval History
-
Date of Service: July 04, 2024
Patient feels better overall today. More alert. Afebrile
Objective Data
-
Labs:
Laboratory Results
07/04/24 07/04/24
06:05 06:05
WBC 8.8
Hgb 12.7 L
Hct 39.4
Plt Count 200
Sodium 142
Potassium 3.4 L
Chloride 107
Carbon Dioxide 28
BUN 42 H
Creatinine 4.5 H*
Glucose 110 H
Calcium 10.0 10.2
Total Bilirubin 1.1
AST 29
ALT 17
Alkaline Phosphatase 103
Vital Signs:
Vital Signs
Temp Pulse Resp BP Pulse Ox
98.3 F 85 18 179/99 95
07/04/24 03:17 07/04/24 08:09 07/04/24 03:17 07/04/24 08:09 07/04/24 03:17
I&O
07/03/24 07/04/24 07/05/24
06:59 06:59 06:59
Intake Total 240 / 240 600 / 600
Output Total 650 / 650 1500 / 1500
Balance -410 / -410 -900 / -900
[2024-07-04] MEDS: KCL 40 MEQ PO (09:15)
--- NOTE | 2024-07-04 11:57 | W.PN.NEPH.PH ---
Today's Communication / Plan
-
see plan
Assessment/Plan
-
IMP:
Multiple falls and ambulatory dysfunction
Hypertensive urgency
[id number]-dgn on PD not actively receiving per history since Feb , was at [facility]
End-stage renal disease on peritoneal dialysis:
History of CVA with left hemiparesis
History of chronic diastolic CHF
Hyperlipidemia
mild hypercalcemia
h/o SHPTH
PD catheter left abd
plan:
A/w multiple falls at home prior CVA with amb dysfunction
also ran out of meds due to insurance coverage issues
CKD likely 4 vs 5, was on PD for few months till Feb 2024 and off since then with renal recovery?
will need records from [place] nephrology Dr Eden -requested
cr uptrending to 4.5, non oliguric, bladder scan 150cc, but tender suprapubic area on testing-check UA
hold lasix, check renal US to r/o any reversible cause
if cr cont to increase likely restart [employer]PER[employer] HD vs PD depending on disposition to rehab or not
possible chr LE edema , no DVT on US , jolding lasix, replace k
Bp improved after resuming meds
mild hypercalcemia-pending PTH, not on erlin meds
monitor labs and wts
d/w daughter Taisha on phone, d/w GF on phone
d/w pt and nursing
-
-
Date of Service: July 04, 2024
CC / HPI / ROS
-
Chief Complaint:
Cristobal with CKD4
History of Present Illness:
cr up at 4.5
Bp stable, no fever
non oliguric with out mazariegos
Review of Systems:
Labs
-
Labs:
WBC 8.8 10^3/uL (4.8-10.8) 07/04/24 06:05
RBC 4.46 10^6/uL (4.70-6.10) L 07/04/24 06:05
Hgb 12.7 g/dL (13.0-18.0) L 07/04/24 06:05
Hct 39.4 % (39.0-52.0) 07/04/24 06:05
Plt Count 200 10^3/uL (130-400) 07/04/24 06:05
Sodium 142 mmol/L (135-145) 07/04/24 06:05
Potassium 3.4 mmol/L (3.5-5.1) L 07/04/24 06:05
Chloride 107 mmol/L (98-107) 07/04/24 06:05
Carbon Dioxide 28 mmol/L (22-30) 07/04/24 06:05
BUN 42 mg/dl (9-20) H 07/04/24 06:05
Creatinine 4.5 mg/dL (0.7-1.3) H* 07/04/24 06:05
eGFR 14.35 07/04/24 06:05
Glucose 110 mg/dl (70-99) H 07/04/24 06:05
Calcium 10.0 mg/dl (8.4-10.2) 07/04/24 06:05
Calcium 10.2 mg/dl (8.4-10.2) 07/04/24 06:05
Hko-V-Ylertlumren Pept 7550 pg/ml 07/02/24 13:56
Albumin 3.3 g/dl (3.5-5.0) L 07/04/24 06:05
Physical Exam
-
Vital Signs:
Vital Signs
Temp Pulse Resp BP Pulse Ox
98 F 80 16 115/74 100
07/04/24 11:23 07/04/24 11:23 07/04/24 11:23 07/04/24 11:23 07/04/24 11:23
Cardiovascular:: Regular rate and rhythm
Respiratory:: Bilateral: CTA
Lung Excursion:: Normal
Abdomen:: Nontender and Soft
Extremity Edema:: +1: Bilateral:
Mazariegos Catheter: No
Other Findings::
Left abd PD catheter site clean
[2024-07-04] MEDS: TYLENOL 650 MG PO (12:56)
[2024-07-05 03:00] VITALS: BP 134/76
[2024-07-05 06:00] VITALS: BMI 31.8
[2024-07-05 07:25] VITALS: BP 161/81; BP 176/97; PULSE 64; PULSE 65
[2024-07-05] MEDS: NORVASC 10 MG PO (08:29)
[2024-07-05] MEDS: IMDUR (EXTENDED RELEASE) 30 MG PO (08:29)
[2024-07-05] MEDS: APRESOLINE 100 MG PO (08:29)
[2024-07-05] MEDS: LIPITOR 40 MG PO (08:29)
[2024-07-05 08:30] LABS: Blood Urea Nitrogen 45 mg/dl (9-20); Calcium 9.7 mg/dl (8.4-10.2); Carbon Dioxide 29 mmol/L (22-30); Chloride 108 mmol/L (98-107); Estimated Creatinine Clearance 22 ml/min; Glucose 105 mg/dl (70-99); Potassium 3.3 mmol/L (3.5-5.1); Sodium 144 mmol/L (135-145); eGFR 13.62
[2024-07-05] MEDS: LOW STRENGTH ASPIRIN 81 MG PO (08:30)
[2024-07-05] MEDS: HEPARIN 5000 UNITS SC (08:30)
[2024-07-05] MEDS: COREG 25 MG PO (08:30)
--- NOTE | 2024-07-05 08:56 | W.PN.HOSP.TC ---
Addendum entered and electronically signed by Reymundo Corcoran MD 07/05/24 16:41:
SONYA on CKD 4
Addendum entered and electronically signed by Reymundo Corcoran MD 07/05/24 14:44:
Hypertensive urgency with resistant hypertension
Original Note:
Today's Communication/Plan
-
Discharge planning today
Assessment / Plan
Assessment / Plan
Physical exam:
General: Chronically ill
HEENT: Normocephalic, Atraumatic and Moist Mucous Membranes
Respiratory: Clear to Auscultation; Negative Wheezes, Rales or Rhonchi
Cardiac: Regular Rhythm and S1/S2
GI: Soft, Nontender and Nondistended
Musculoskeletal: No Clubbing, No Cyanosis and No Edema
Neuro: Awake, Alert and Oriented, left chronic hemiparesis present.
Psych: Calm
A/P:
Multiple falls and ambulatory dysfunction:
Likely due to recrudescence of stroke
Appreciated neurology consult
On aspirin and statin
Brain MRI ordered upon admission-after discussion with neurology no need for MRI.
CT head no acute intracranial normalities.
Updated daughter over the phone today
PT OT eval
estimating manager for discharge disposition
Discharge planning once cleared by nephrology--> nephrology cleared him for discharge today.
Chronic kidney disease stage V:
Not on peritoneal dialysis or HD
Renal function worsening today
Nephrology following and awaiting for final determination
Discharge planning once cleared by nephrology--> nephrology cleared him for discharge today.
He will likely require either PD or HD as outpatient relatively soon but no indication at the moment or as inpatient
Hypokalemia:
Replete and trend
Hypertensive urgency:
Blood pressure improved
Continue Coreg, hydralazine, Imdur, hydralazine--> I send all the prescriptions to his pharmacy today
Monitor blood pressure closely and adjust medications accordingly
History of CVA with left hemiparesis:
On antiplatelet and statin
History of chronic diastolic CHF:
Prior systolic dysfunction but improved.
Monitor volume status
Hyperlipidemia:
Continue atorvastatin 40 mg p.o. daily
DVT prophylaxis:
Heparin SQ
CODE STATUS:
Full code
Anticipated Discharge: Today
Subjective/Interval History
-
Date of Service: July 05, 2024
Patient alert and oriented. He wants to go home. No shortness of breath or chest pain.
Objective Data
-
Labs:
Laboratory Results
07/05/24
07:09
Sodium 144
Potassium 3.3 L
Chloride 108 H
Carbon Dioxide 29
BUN 45 H
Creatinine 4.7 H*
Glucose 105 H
Calcium 9.7
Vital Signs:
Vital Signs
Temp Pulse Resp BP Pulse Ox
97.9 F 64 20 161/81 100
07/05/24 07:25 07/05/24 08:30 07/05/24 07:25 07/05/24 08:30 07/05/24 07:25
I&O
07/04/24 07/05/24 07/06/24
06:59 06:59 06:59
Intake Total 600 / 600 852 / 852 240 / 240
Output Total 1500 / 1500 1475 / 1475 350 / 350
Balance -900 / -900 -623 / -623 -110 / -110
[2024-07-05 10:30] LABS: Urine Albumin 4+ (Neg - Trace); Urine Bilirubin Negative (Negative); Urine Character Clear (Clear); Urine Color Yellow; Urine Glucose Negative (Negative); Urine Ketone Negative (Negative); Urine Leukocyte Negative (Negative); Urine Nitrite Negative (Negative); Urine Occult Blood 2+ (Negative); Urine Specific Gravity 1.015 (<1.030); Urine Urobilinogen Negative (Neg - 1+); Urine pH 6.5 (5.0-9.0)
--- NOTE | 2024-07-05 10:48 | PN.CDI ---
CDI
- -
CDI:
Physician Documentation Request
Admit Date: 07/02/24 18:26
Dear Doctor Nilo,
Patient admitted for ambulatory dysfunction.
07/04 Hospitalist PN: 'Hypertensive urgency: Blood pressure improved, Continue Coreg, hydralazine, Imdur, hydralazine'
Clarify which, if any of the following, is a more accurate diagnosis reflecting the type and acuity of the documented hypertension:
Hypertensive urgency with resistant hypertension
Hypertensive urgency
Other
Resistant hypertension -Per AHA, resistant hypertension is uncontrolled hypertension despite use of three or more antihypertensive agents of different classes.
Hypertensive Urgency - B/P is severely elevated (systolic > or = to 180 or diastolic > or = to 110) but there is no associated organ damage. Symptoms may include: headache, shortness of breath, nosebleeds, severe anxiety. Treatment usually consists
of addition to or adjusting of oral medications and does not generally necessitate hospitalization.
Use of terms such as suspected, likely, concern for, or probable (associated with a specific diagnosis that is being evaluated, monitored, or treated as if it exists) are acceptable and can be coded in the inpatient setting, when documented at the
time of discharge.
Thank you,
Vivi Akers RN, BSN
CDI Specialist
Available via [employer] text
Please use your independent medical judgment in providing your response.
[2024-07-05 10:59] LABS: Urine Mucus Few; Urine Squamous Cell 0-2 /LPF (Few)
[2024-07-05 11:00] LABS: Urine Bacteria Few (Negative); Urine Hyaline Cast 0-2 /LPF (0-2); Urine White Cell 0-2 /HPF (0-5)
--- NOTE | 2024-07-05 11:23 | W.PN.NEPH.PH ---
Today's Communication / Plan
-
Follow BMP
Assessment/Plan
-
IMP:
Multiple falls and ambulatory dysfunction
Hypertension
[id number]-eev on PD not actively receiving per history since Feb , was at [facility]
off peritoneal dialysis:
History of CVA with left hemiparesis
chronic diastolic CHF
Hyperlipidemia
mild hypercalcemia
h/o 2HPT
PD catheter
Plan
Holding Lasix
Replete potassium
Follow BMP
He was last seen by Dr. Eden April 25, 2024. He had a slip for labs which she has not yet performed
Creatinine on April 20, 2024 was 3.36
His next office visit is August 22, 2024. However, they do have openings on July 24, 2024 if needed.
For ongoing transplant evaluation at [place]
If he requires initiation of dialysis again he will need to be hemodialysis. He has no one to help him with home PD at this time
He could be discharged from a renal standpoint. He would require blood work on Monday, . He would then need to call for an earlier appointment (July 24, 2024) with his sole scraper.
-
-
Date of Service: July 05, 2024
CC / HPI / ROS
-
Chief Complaint:
Cristobal with CKD4
History of Present Illness:
cr up at 4.7
Bp stable, no fever
non oliguric with out mazariegos
K low 3.3
Review of Systems:
No chest pain or shortness of breath
Labs
-
Labs:
WBC 8.8 10^3/uL (4.8-10.8) 07/04/24 06:05
RBC 4.46 10^6/uL (4.70-6.10) L 07/04/24 06:05
Hgb 12.7 g/dL (13.0-18.0) L 07/04/24 06:05
Hct 39.4 % (39.0-52.0) 07/04/24 06:05
Plt Count 200 10^3/uL (130-400) 07/04/24 06:05
Sodium 144 mmol/L (135-145) 07/05/24 07:09
Potassium 3.3 mmol/L (3.5-5.1) L 07/05/24 07:09
Chloride 108 mmol/L (98-107) H 07/05/24 07:09
Carbon Dioxide 29 mmol/L (22-30) 07/05/24 07:09
BUN 45 mg/dl (9-20) H 07/05/24 07:09
Creatinine 4.7 mg/dL (0.7-1.3) H* 07/05/24 07:09
eGFR 13.62 07/05/24 07:09
Glucose 105 mg/dl (70-99) H 07/05/24 07:09
Calcium 9.7 mg/dl (8.4-10.2) 07/05/24 07:09
Smb-W-Ickwfqwjmad Pept 7550 pg/ml 07/02/24 13:56
Albumin 3.3 g/dl (3.5-5.0) L 07/04/24 06:05
Physical Exam
-
Vital Signs:
Vital Signs
Temp Pulse Resp BP Pulse Ox
97.9 F 64 20 161/81 100
07/05/24 07:25 07/05/24 08:30 07/05/24 07:25 07/05/24 08:30 07/05/24 07:25
Cardiovascular:: Regular rate and rhythm
Respiratory:: Bilateral: Coarse
Lung Excursion:: Normal
Abdomen:: Nontender and Soft
Bowel Sounds:: Normal
Extremity Edema:: None: Bilateral:
Other Findings::
PD catheter intact
[2024-07-05 11:27] VITALS: BP 141/77
[2024-07-05] MEDS: KCL 40 MEQ PO (11:50)
--- NOTE | 2024-07-05 13:12 | CM ---
Reviewed PT/OT. Original indication was for SNF. Met with patient and his fiancee at his bedside. They both stated that he is at baseline and that he would do better at home than rehab. Patient's fiancee stated that patient has family next door, he
wears a personal emergency response necklace and she stays with him on weekends.
Spoke with PT/OT. They both stated that patient is doing better now than he did last session. VN was offered but patient declined.
Plan: Case management will continue to follow and assist with discharge planning. Home when stable.
--- NOTE | 2024-07-05 13:35 | W.DCSUMMARY ---
Discharge Summary
Discharge Data
Date of Admission: 07/02/24
Date of Discharge: 07/05/24
-
Pending Results: No
Hospital Course
Patient 58 years old man with history of stroke and left-sided hemiparesis, multiple falls, ran out of his medications and came into the hospital with worsening left-sided weakness fall and ambulatory dysfunction and worsening kidney function.
Neurology and nephrology consulted. Neurology did not feel he needed any further neurological workup and recommended to continue aspirin and statins. Nephrology recommended to follow-up outpatient renal function and to consider restarting either
peritoneal dialysis or hemodialysis as outpatient but no need for as inpatient and from their standpoint he is cleared for discharge today. PT OT recommended rehab but patient declines rehab and wants to go home with home health. Discussed with
family at length. He will be discharged in relatively stable condition today.
Discharge duration: 35 minutes
Discharge Plan
-
Patient Disposition: Home with Home Care
Discharge Diagnosis/Procedures: Recrudescence of stroke. Chronic kidney disease stage V. Hypokalemia. Hypertensive urgency. History of stroke with left hemiparesis.
Diet: Low Cholesterol
Activity: As tolerated
Driving Restrictions: As prior to admission
Blood Work: PCP or nephrology to order CBC, BMP within 1 week.
Specialty Instructions: Weigh Daily- Call MD for wt gain/loss 3 lbs overnight/5 lbs in 1 week
Referrals:
Primary care, provider [Other] - in less than 1 week
Killian Jimenez MD [Active] - in one to two weeks
Prescriptions:
Continued
atorvastatin 40 mg Tablet
40 mg PO DAILY Qty: 30 0RF
carvedilol 25 mg Tablet
25 mg PO BID Qty: 60 0RF
isosorbide mononitrate 30 mg Tablet Extended Release 24 Hr
30 mg PO DAILY Qty: 30 0RF
amlodipine 10 mg tablet
10 mg PO DAILY Qty: 30 0RF
hydralazine 100 mg tablet
100 mg PO TID Qty: 90 0RF
aspirin 81 mg Tablet,Chewable
81 mg PO DAILY Qty: 30 0RF
Discontinued
potassium chloride 20 mEq Tablet Extended Release
20 meq PO DAILY
furosemide [Lasix] 40 mg tablet
80 mg PO BID
Discharge Orders:
Discharge Patient (As Directed); Ordered 07/05/24
Ordered By: Reymundo Corcoran
Discharge Date and Time
Discharge Date/Time: 07/05/24 14:35
Print Language: IVORIAN
--- NOTE | 2024-07-05 14:54 | PTCARENOTE ---
Educated pt on discharge packet. Halima at bedside. State understanding for blood work in one week. Halima states doctors appointment with Dr. Eden from [place] at the end of the month. Educated pt on follow up with our doctors, pt and halima
state understanding. Answered questions about medication. No further questions at this time. Michellee to transport home.
--- NOTE | 2024-07-05 15:44 | PN.CDI ---
CDI
- -
CDI:
Physician Documentation Request
Admit Date: 07/02/24 18:26
Dear Doctor Nilo,
Patient admitted for ambulatory dysfunction.
07/04 Nephrology PN: '[id number] on PD not actively receiving per history since
07/05 Hospitalist PN: 'Chronic kidney disease stage V'
Laboratory Tests
07/02/24 07/03/24 07/04/24
13:56 06:53 06:05
Creatinine 3.7 H 3.9 H 4.5 H*
eGFR 18.15 17.04 14.35
Clarify which of the following accurately represents the patient's renal status:
SONYA on CKD 4
CKD 5
Other
Criteria for SONYA*
1 Increase in serum creatinine by > or = to 0.3 mg/dL (> or = to 26.5 micromol/L) within 48 hours, OR
2 Increase in serum creatinine to > or = to 1.5 times baseline, which is known or presumed to have occurred within 7 days, OR
3 Urine volume < 0.5 nL/kg/hour for six hours
Stages of Chronic Kidney Disease*
Level Description GFR
G1 Normal or High >90
G2 Mildly decreased 60-89
G3a Mildly to moderately decreased 45-59
G3b Moderately to severely decreased 30-44
G4 Severely decreased 15-29
G5 Kidney failure <15
Use of terms such as suspected, likely, concern for, or probable (associated with a specific diagnosis that is being evaluated, monitored, or treated as if it exists) are acceptable and can be coded in the inpatient setting, when documented at the
time of discharge.
Thank you,
Vivi Akers RN, BSN
CDI Specialist
Available via [place] text
Please use your independent medical judgment in providing your response.
*Source: Kidney Disease: Improving Global Outcomes (KDIGO) 2012
[2024-07-06 10:29] LABS: Intact PTH 416.2 pg/ml (13.6-85.8)
== END 2024-07-05 14:35 | disposition home or self-care (01) | DRG 57 ==
LOC: 4 EAST ACU 18:26
PROVIDERS: Clinical Nurse Specialist Family Health; Emergency Medicine; ADMITTING PHYSICIAN Hospitalist; ATTENDING PHYSICIAN Hospitalist; CONSULT PHYSICIAN Psychiatry & Neurology Clinical Neurophysiology; EMERGENCY PHYSICIAN Student in an Organized Health Care Education/Training Program; OTHER PHYSICIAN Internal Medicine
DX: I69.354 Hemiplegia and hemiparesis following cerebral infarction affecting left non-dominant side (principal); I13.0 Hypertensive heart and chronic kidney disease with heart failure and stage 1 through stage 4 chronic kidney disease, or unspecified chronic kidney disease; I50.32 Chronic diastolic (congestive) heart failure; N18.4 Chronic kidney disease, stage 4 (severe); N17.9 Acute kidney failure, unspecified; I42.9 Cardiomyopathy, unspecified; E87.6 Hypokalemia; I16.0 Hypertensive urgency; E11.22 Type 2 diabetes mellitus with diabetic chronic kidney disease; I1A.0 Resistant hypertension; W07.XXXA Fall from chair, initial encounter; D50.9 Iron deficiency anemia, unspecified; Z82.49 Family history of ischemic heart disease and other diseases of the circulatory system; Z79.82 Long term (current) use of aspirin; E78.00 Pure hypercholesterolemia, unspecified; E83.52 Hypercalcemia; Z79.899 Other long term (current) drug therapy; Z91.148 Patient's other noncompliance with medication regimen for other reason
CPT/HCPCS: 70450; 71045; 80048; 80053; 80061; 81003; 81015; 82550; 83880; 83970; 84484; 85025; 85610; 85730; 93005; 93971; 97116; 97163; 97167; 97530; 97535; 99285

== ENCOUNTER 2024-08-25 19:03 | Observation (INO) | payer MEDICARE, SELFPAY ==
[2024-08-25] VITALS (7 sets, daily range): BP systolic 168–193; BP diastolic 86–137; BMI 32.1; BMI 31.9
[2024-08-25 15:55] LABS: % Basophils 0.7 % (0-2); % Eosinophils 3.4 % (0-6); % Immature Granulocytes 0.1 % (0-0.5); % Lymphocytes 20.7 % (20.5-51.1); % Neutrophils 67.1 % (42.2-75.2); Absolute Basophils 0.1 10^3/uL (0-0.2); Absolute Eosinophils 0.2 10^3/uL (0-0.7); Absolute Lymphocytes 1.5 10^3/uL (1.2-3.4); Absolute Monocytes 0.6 10^3/uL (0.1-0.6); Absolute Neutrophils 4.8 10^3/uL (1.4-6.5); Hematocrit 38.9 % (39.0-52.0); Hemoglobin 12.2 g/dL (13.0-18.0); Mean Corp Hgb Conc. 31.4 g/dL (33.0-37.0); Mean Corpuscular Hgb 28.8 pg (27.0-31.0); Mean Corpuscular Volume 91.7 fL (80.0-94.0); Mean Platelet Volume 10.4 fL (7.4-10.4); Nucleated Red Blood Cells % 0 % (-); Platelet Count 176 10^3/uL (130-400); Red Blood Cell Count 4.24 10^6/uL (4.70-6.10); White Blood Cell Count 7.2 10^3/uL (4.8-10.8)
[2024-08-25 16:03] LABS: Urine Albumin 4+ (Neg - Trace); Urine Bilirubin Negative (Negative); Urine Character Clear (Clear); Urine Color Yellow; Urine Glucose Negative (Negative); Urine Ketone Negative (Negative); Urine Leukocyte Negative (Negative); Urine Nitrite Negative (Negative); Urine Occult Blood 3+ (Negative); Urine Urobilinogen Negative (Neg - 1+); Urine pH 6.5 (5.0-9.0)
[2024-08-25 16:08] LABS: ALT (SGPT) 18 U/L (0-50); AST (SGOT) 25 U/L (17-59); Albumin 3.5 g/dl (3.5-5.0); Alkaline Phosphatase 78 U/L (38-126); Blood Urea Nitrogen 31 mg/dl (9-20); Calcium 9.3 mg/dl (8.4-10.2); Carbon Dioxide 30 mmol/L (22-30); Chloride 113 mmol/L (98-107); Estimated Creatinine Clearance 30 ml/min; Glucose 108 mg/dl (70-99); Potassium 3.4 mmol/L (3.5-5.1); Sodium 144 mmol/L (135-145); Total Bilirubin 0.8 mg/dl (0.2-1.3); Total Protein 6.4 g/dl (6.3-8.2); eGFR 18.76
[2024-08-25 16:11] LABS: Urine White Cell 0-2 /HPF (0-5)
--- NOTE | 2024-08-25 16:18 | ED.GENMED ---
History of Present Illness
General
Chief Complaint: Swelling
Time Seen by Provider: 08/25/24 15:54
History of Present Illness
History of Present Illness:
58-year-old male with history of chronic kidney disease, hypertension and prior stroke presents the emergency department for evaluation of uncontrolled hypertension. He is out of patient's, was admitted to the hospital in early June and discharged
on 07/05 with 1 month supply of medications. He was unable to get refills from his primary care physician and thus return to the emergency department here due to increased leg edema. Denies chest pain or dyspnea at this time.
Past History
Past History
ED Past Medical History: CVA and HTN
ED Past Surgical History: Orthopedic
Social History
Tobacco: Non-smoker
Living: with family
Employment: Employed
Family History
Family History: Hypertension
Review of Systems
Review of Systems
Allergies reviewed?: Yes
All Other Systems: ROS reviewed and negative except as documented in HPI and ROS
Phy Exam
Physical Exam
Physical Exam:
GEN: Well appearing, NAD, WDWN
HEENT: Oral mucosa moist, no scleral icterus
Cardiac: Regular rate and rhythm, no murmurs
Lung: No respiratory distress, no tachypnea
MSK: Severe bilateral lower extremity edema
Skin: Good color, no pallor or jaundice, no rashes
Neuro: AO x3, moves all extremities freely
Psych: Calm, cooperative
Scores
Heart Failure Risk
Heart Failure Risk Score: Not Applicable
Course
Orders/Labs/Results
Orders:
Orders
08/25/24 Dinner
Regular
At Your Request: Full Participation
Does patient need a safe tray?: No
08/25/24 15:08
EKG [Electrocardiogram (*1)] Urgent
Reason for Study: Hypertension, Benign
EKG- Treatment ONCE
08/25/24 15:40
BNP [NT-proBNP] Urgent
Complete Blood Count/With Diff Urgent
Comprehensive Metabolic Panel Urgent
Troponin I Urgent
Urinalysis Reflex To Culture Urgent
Date Specimen was Collected: 08/25/24
Time Specimen was Collected: 15:34
Urine Microscopic Reflex Cult Urgent
08/25/24 16:18
HydrALAZINE [Apresoline] 10 mg IV NOW STA
CR Chest - 2 Views Urgent
Comment:
Reason For Exam: HTN/edema/SOB
08/25/24 18:14
Admit/Transfer Patient As Directed
Co-Sign Provider:
Level of Care: Observation services
Assign to:: Medical/Surgical
Physician / Group: Forrest Benton
Diagnosis: uncontrolled hypertension
PRN Pain Medication Management As Directed
May give lesser potent ordered pain med per pt: Yes
preference::
Protocol:: Medication orders for pain may be administered in a
manner that supports deferring to patient preference
when the pt is:
- Requesting an ordered lesser potent pain medication.
Least to most potent pain medications are defined
as: acetaminophen < NSAID < tramadol < opioids
(morphine, oxycodone, hydromorphone).
- Requesting a lesser dose of the same medication IF
ORDERED.
- Requesting a less intrusive route of administration
if both routes are prescribed by the provider (PO <
IV).
08/25/24 18:15
Code Status As Directed
Resuscitation Status: Full Code
08/25/24 19:38
Acetaminophen [Tylenol] 650 mg PO Q4HPRN PRN
08/25/24 19:38
Activity As Directed
Activity Level: As Tolerated
Intake/ Output As Directed
Frequency: Per unit guidelines
Vital Signs As Directed
Frequency: Per unit guidelines
Weight As Directed
Frequency: Daily
Type of Scale: Standing Scale
Comment: Daily morning weight. If unable to stand, use balanced bed scale.
Weight As Directed
Frequency: Once
Type of Scale: Standing Scale
Comment: Upon Admission. If unable to stand, use balanced bed scale.
Pulse Ox/cont/shift [RESP] Routine
Quantity: 1
Special Instructions: Daily pulse oximetry at rest. If greater than 92% at rest also obtain pulse oximetry
while ambulating as tolerated.
DX Deep Vein Thrombosis Video Routine
08/25/24 20:00
Carvedilol [Coreg] 25 mg PO BID
08/25/24 22:00
HydrALAZINE [Apresoline] 100 mg PO TID
08/26/24 00:00
Heparin 5,000 units SC Q8
08/26/24 06:00
Basic Metabolic Panel IN AM
Complete Blood Count/No Diff IN AM
08/26/24 08:00
Amlodipine [Norvasc] 10 mg PO DAILY
Aspirin Chewable [Low Strength Aspirin] 81 mg PO DAILY
Atorvastatin [Lipitor] 40 mg PO DAILY
ISOSORBIDE MONOnitrate ER [Imdur (Extended Release)] 30 mg PO DAILY
Abnormal Lab Results
08/25/24
15:40
RBC 4.24 L 10^6/uL
(4.70-6.10)
Hgb 12.2 L g/dL
(13.0-18.0)
Hct 38.9 L %
(39.0-52.0)
MCHC 31.4 L g/dL
(33.0-37.0)
Potassium 3.4 L mmol/L
(3.5-5.1)
Chloride 113 H mmol/L
(98-107)
BUN 31 H mg/dl
(9-20)
Creatinine 3.6 H mg/dL
(0.7-1.3)
Glucose 108 H mg/dl
(70-99)
Ur Occult Blood Reflex 3+ A
(Negative)
Urine RBC 3-6 A /HPF
(0-2)
Urine Albumin (Reflex) 4+ A
(Neg - Trace)
08/25/24 15:40
08/25/24 15:40
Vital Signs
Initial and Last Documented VS:
Initial Vital Signs
Temp Pulse Resp BP Pulse Ox
98.5 F 78 18 192/137 96
08/25/24 15:05 08/25/24 15:05 08/25/24 15:05 08/25/24 15:05 08/25/24 15:05
Last Documented Vital Signs
Temp Pulse Resp BP Pulse Ox
97.4 F 66 20 175/89 97
08/25/24 19:55 08/25/24 21:31 08/25/24 19:55 08/25/24 21:31 08/25/24 19:55
MDM/Problems Addressed
MDM/Problems Addressed:
Patient will require admission for intense blood pressure control particular given his tenuous renal function and significant functional limitations
*Critical Care Note
Total Time (30-74mins, 75-104mins- exclusive of procedures): Not Applicable
ED Attending Note
-
Portions of this chart may have been created with voice recognition software.� Occasional wrong word or��sound alike� substitutions may have occurred due to the inherent limitations of voice recognition software.
Discharge Plan
Departure
Patient Disposition: Admit
Date of Disposition: 08/25/24
Time of Disposition: 17:33
Admit to: Med/Surg
Presentation/result/management discussed w/ accepting MD/DO: Hospitalist
Discharge Problem:
Uncontrolled hypertension
Interventions
Interventions:
*Risk Screen - Suicide Last Done: 08/25/24 15:07
*General Assessment Last Done: 08/25/24 15:07
*Neglect/Abuse Screening Last Done: 08/25/24 15:07
*ED- Fall Risk Assessment Last Done: 08/25/24 15:37
*ED COVID-19 Vaccine History Last Done: 08/25/24 15:07
*Nursing Disposition Last Done: 08/25/24 19:34
ED- Cardiac Assessment Last Done: 08/25/24 15:37
ED- Neurological Assessment Last Done: 08/25/24 15:37
ED- Pulmonary Assessment Last Done: 08/25/24 15:37
ED-Skin Assessment Last Done: 08/25/24 15:37
Discharge Date and Time
Discharge Date/Time: 08/25/24 19:35
[2024-08-25 16:20] LABS: NT-proBNP 3800 pg/ml; Troponin I 0.029 ng/ml
[2024-08-25] MEDS: APRESOLINE 10 MG IV (17:00)
--- NOTE | 2024-08-25 17:39 | HPS.HSE ---
Family Physician
-
Family Physician: NOT KNOW UNKNOWN - PT DOES
Chief Complaint
-
bilateral leg edema
History of Present Illness
Patient is a 58-year-old male with past medical history significant for hypertension, chronic kidney disease IV previously on peritoneal dialysis, HFrEF, chronic anemia and Hx CVA in 2019 with left-sided weakness who presented to [facility] ED for
evaluation of increased bilateral leg edema and elevated blood pressure. Patient reports that his cousin visited today and utilized his home blood pressure cuff to check BP that was elevated so he came to ED for evaluation. Patient with recent
hospitalization 07/02/2024 - 07/05/2024 and states when discharged he utilized scripts for medications and when he ran out primary care would not refill so he has not taken any medication besides a baby aspirin since running out. Patient was
prescribed 30 day supply of medications at discharge. Patient denies any recent illness, fever, chills, cough, shortness of breath, chest pain, palpitations, nausea, vomiting, constipation, dairrhea or urinary symptoms.
Medical History
Past Medical History
Past Medical History: Reports Other
Additional Past Medical History:
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
flash pulmonary edema due to acute systolic and diastolic heart failure November 2022
chronic kidney disease IV previously on peritoneal dialysis
non ischemic myocardial injury with elevated troponin
chronic anemia iron deficiency
HTN
HFrEF
Past Surgical History: Reports None
Social History
Tobacco: Non-smoker
Alcohol: None
Drug: None
Personal:
Living: Alone (Lives in [id number] at his cousins)
Employment: Disabled (As of 2019)
Family History
Family History: Other (Mother and father both alcoholics and smokers both , 1 brother renal failure, hypertension in his 40s 1 brother living unsure medical problems patient with 3 adult children 2 girls 1 boy healthy)
Allergies / Home Medications
Allergies reflects when Allergies were last updated in [employer].
Home Medications with original date entered in [employer]
Allergy/Medication List:
Allergies
Allergy/AdvReac Type Severity Reaction Status Date / Time
No Known Allergies Allergy Unverified 08/25/24 15:07
Home Medications
amlodipine 10 mg tablet 10 mg PO DAILY Blood Pressure #30 tabs 07/05/24
aspirin 81 mg chewable tablet 81 mg PO DAILY Blood Clot Prevention/Tx #30 tabs 07/05/24
atorvastatin 40 mg tablet 40 mg PO DAILY High Cholesterol #30 tabs 07/05/24
carvedilol 25 mg tablet 25 mg PO BID Blood Pressure #60 tabs 07/05/24
hydralazine 100 mg tablet 100 mg PO TID Blood Pressure #90 tabs 07/05/24
isosorbide mononitrate 30 mg tablet,extended release 24 hr 30 mg PO DAILY #30 tabs 07/05/24
Review of Systems
-
History Source: Patient
Constitutional: Reports Other (elevated blood pressure )
Musculoskeletal: Reports Edema (bilateral lower extremity )
Physical Exam
Vital Signs
Vital Signs
Temp Pulse Resp BP Pulse Ox
98.5 F 71 16 193/101 99
08/25/24 15:05 08/25/24 17:00 08/25/24 17:00 08/25/24 17:00 08/25/24 17:00
Physical Exam
General: Well Developed, Well Nourished and No Apparent Distress
HEENT: NormoCephalic, Moist mucous membranes and Atraumatic
Respiratory: Clear and Non Labored Respirations
Cardiac: S1/S2 and Regular Rhythm
Breast: Deferred by me
GI: Soft, Non Tender, Non Distended and Normal Bowel Sounds
Rectal: Deferred by Provider
Genito-urinary: Deferred by me
Musculoskeletal: No Clubbing, No Cyanosis, Edema, Left Lower Extremity (+3-4), Edema, Right Lower Extremity (+3-4) and Other (left-sided weakness residual from CVA 2019)
Skin: IV/Catheter Site
Neuro: Awake, Alert and AO x 3
Psych: Calm
Laboratory Results
-
08/25/24 15:40
08/25/24 15:40
Laboratory Results
Total Bilirubin 0.8 mg/dl (0.2-1.3) 08/25/24 15:40
AST 25 U/L (17-59) 08/25/24 15:40
ALT 18 U/L (0-50) 08/25/24 15:40
Alkaline Phosphatase 78 U/L (38-126) 08/25/24 15:40
Troponin I 0.029 ng/ml 08/25/24 15:40
Data Reviewed
-
Medical Tests (Nuc Med, Echo, EKG etc): Report Reviewed by me (EKG: NORMAL SINUS RHYTHM WITH SINUS ARRHYTHMIA LEFT AXIS DEVIATION MINIMAL VOLTAGE CRITERIA FOR LVH, MAY BE NORMAL VARIANT ( Reuben product ) T WAVE ABNORMALITY, CONSIDER LATERAL
ISCHEMIA)
Lab Data: Labs Reviewed by me (K+ 3.4, BUN 31, Creat 3.6, est CrCl 30, eGFR 18.76, trop 0.029, pBNP 3800)
Impression/Plan
-
IMPRESSION/PLAN:
#uncontrolled hypertension 2/2 non-compliance
#hypertension
trop 0.029, pBNP 3800
CXR:
EKG: NORMAL SINUS RHYTHM WITH SINUS ARRHYTHMIA
LEFT AXIS DEVIATION
MINIMAL VOLTAGE CRITERIA FOR LVH, MAY BE NORMAL VARIANT ( Reuben product )
T WAVE ABNORMALITY, CONSIDER LATERAL ISCHEMIA
- Admit to med/surg
- restart blood pressure medications
- Consult case management
#chronic kidney disease IV previously on peritoneal dialysis
K+ 3.4, BUN 31, Creat 3.6, est CrCl 30, eGFR 18.76
- monitor BMP
- Consult Nephrology
#HFrEF
ECHO (01/11/2024): Top normal left ventricular size. Normal systolic function. LV ejection fraction is 56% by Dumont's biplane method of discs. No regional wall motion abnormalities are seen. Mild left
ventricular hypertrophy.
Normal diastolic function.
Normal right ventricular size and function.
No significant valvular pathology
Compared to prior study dated 11/30/22, left ventricular systolic function was previously reduced (EF 39%) and has now normalized
- daily weights
- I & Os
#chronic anemia
hgb 12.2, hct 38.9
- stable, monitor CBC
#Hx CVA in 2020 with left-sided weakness
Code status: full code
DVT prophylaxis: heparin sq
--- NOTE | 2024-08-25 18:45 | PHANOTE ---
med rec tech 08/25/24: patient says that he doesn't know any of his meds. He is waiting for a family member to return who might have the blister packs his meds come in. He said all his meds come together in one blister pack.
--- NOTE | 2024-08-25 19:47 | W.PN.UPDATE ---
Update Note
Progress Note Update
This is an addendum to H&P written by Tonya Rosa on 08/25/2024. Patient seen examined independently with RIB TRIM SEPARATOR.
50-year-old male past medical history of CKD 4 previously on peritoneal dialysis, Prior CVA with residual left-sided weakness, hypertension, presenting with elevated blood pressure today. He has been unable to take his medications for the past 2 to
3 weeks due to inability to fill his medications.
He was recently admitted from 07/02 to 07/05 for running out of his medications, fall ambulatory dysfunction and worsening kidney function. His medications were restarted with plan for potential resuming hemodialysis eventually as outpatient.
Blood pressure 192/137. No symptoms apart from progressively increasing lower extremity edema.
EKG shows normal sinus rhythm with sinus arrhythmia. LVH. Cardiac BNP of 3800. Troponin 0.029. Chest x-ray appears to show no acute abnormality, report pending.
Patient given IV hydralazine.
Resume oral antihypertensive medications which include amlodipine, Coreg, hydralazine and isosorbide mononitrate. He needs to follow-up with nephrology for eventual restarting of hemodialysis. Nephrology consulted.
[2024-08-25] MEDS: COREG 25 MG PO (20:21)
[2024-08-25] MEDS: APRESOLINE 100 MG PO (21:31)
[2024-08-25] MEDS: HEPARIN 5000 UNITS SC (23:25)
--- NOTE | 2024-08-26 00:35 | PTCARENOTE ---
Pts family provided two conflicting med lists. Med rec updated with most recent med list. Both at bedside.
[2024-08-26 03:35] VITALS: BP 184/108
[2024-08-26] MEDS: APRESOLINE 10 MG IV (03:46)
[2024-08-26] MEDS: ZOFRAN 4 MG IV (05:15)
[2024-08-26 05:24] VITALS: BP 170/104
[2024-08-26] MEDS: COREG 25 MG PO (05:40)
[2024-08-26] MEDS: NORVASC 10 MG PO (05:40)
[2024-08-26 05:52] VITALS: BMI 32.0
--- NOTE | 2024-08-26 06:12 | PTCARENOTE ---
0515: Pt vomited moderate amount, abd soft nontender, BP 170/104 manual, IV zofran given, pt stating no nausea. Pt unknown when last BM was but denies constipation. House GEOSCIENTIST aware order to give AM dose coreg and amlodipine. Pt vomited shortly after
taking medication. No pill found in emesis. House GEOSCIENTIST aware.
0335: BP 184/108 HR 72, manual BP 190/110 house GEOSCIENTIST notifed order for 10 mg IV hydralazine.
2313: Pts BP 168/87 HR 78, K 3.4 on admit labs, house GEOSCIENTIST aware order for telemetry.
[2024-08-26 07:30] VITALS: BP 185/102
[2024-08-26] MEDS: HEPARIN 5000 UNITS SC (08:01)
[2024-08-26] MEDS: IMDUR (EXTENDED RELEASE) 30 MG PO (08:02)
[2024-08-26] MEDS: LIPITOR 40 MG PO (08:02)
[2024-08-26] MEDS: LOW STRENGTH ASPIRIN 81 MG PO (08:02)
[2024-08-26] MEDS: APRESOLINE 100 MG PO ×2 (08:02→15:14)
[2024-08-26 08:12] LABS: Hematocrit 37.6 % (39.0-52.0); Hemoglobin 11.8 g/dL (13.0-18.0); Mean Corp Hgb Conc. 31.4 g/dL (33.0-37.0); Mean Corpuscular Hgb 28.7 pg (27.0-31.0); Mean Corpuscular Volume 91.5 fL (80.0-94.0); Platelet Count 189 10^3/uL (130-400); Red Blood Cell Count 4.11 10^6/uL (4.70-6.10); White Blood Cell Count 8.2 10^3/uL (4.8-10.8)
--- NOTE | 2024-08-26 08:46 | W.PN.HOSP.TC ---
Today's Communication/Plan
-
Discharge in the afternoon if tolerating lunch
Assessment / Plan
Assessment / Plan
HPI: 58-year-old male past medical history of CKD 4 previously on peritoneal dialysis, Prior CVA with residual left-sided weakness, hypertension, presenting with elevated blood pressure today. He has been unable to take his medications for the past
2 to 3 weeks due to inability to fill his medications. He was recently admitted from 07/02 to 07/05 for running out of his medications, fall ambulatory dysfunction and worsening kidney function. His medications were restarted with plan for potential
resuming hemodialysis eventually as outpatient. Blood pressure 192/137. No symptoms apart from progressively increasing lower extremity edema.
EKG shows normal sinus rhythm with sinus arrhythmia. LVH. Cardiac BNP of 3800. Troponin 0.029. Chest x-ray appears to show no acute abnormality, report pending.
#Uncontrolled hypertension
#Medication nonadherence
#Essential hypertension
Patient ran out of his medications
Reports calling his PCP, and states they would not fill his medications
Counseled patient that he needs to follow-up with his PCP in 1-2 weeks so he they can send him refills
Blood pressure improved on home regimen of amlodipine 10 mg daily, Coreg 25 mg twice a day, hydralazine 100 mg 3 times daily, Imdur 30 mg daily
Will discharge today, 30-day supply sent to pharmacy
#Nausea/vomiting
Vomiting resolved
Continue supportive care, probable discharge in the afternoon if tolerating lunch
#Hyperlipidemia
Continue statin
#Stage IV chronic kidney disease previously on peritoneal dialysis
Follow-up with nephrology outpatient
#Chronic anemia
Monitor
#History of stroke in 2020 with left-sided weakness
Continue aspirin, statin
#Obesity due to excess calories
Affects all aspects of care
DVT prophylaxis�subcu heparin
Full code
Physical Exam
General: Obese, no acute distress
HEENT: Normocephalic, Atraumatic, EOMI, MMM
Respiratory: Clear to Auscultation bilaterally
Cardiac: Normal S1/S2, Regular Rate and Rhythm
GI: Soft, Nontender, Nondistended, Normal Bowel Sounds
Extremities: No Clubbing, Cyanosis
Lower extremity edema noted
Neuro: Nonfocal/Grossly Intact
Psych: Calm, Cooperative
Derm: No Visible lesions
Anticipated Discharge: Today
Subjective/Interval History
-
Date of Service: August 26, 2024
Patient reports nausea and vomiting overnight, vomiting resolved. He is mildly nauseous. He only had a few bites of his breakfast. No chest pain, no shortness of breath. No fever.
Objective Data
-
Labs:
Laboratory Results
08/26/24
07:31
WBC 8.2
Hgb 11.8 L
Hct 37.6 L
Plt Count 189
Sodium Pending
Potassium Pending
Chloride Pending
Carbon Dioxide Pending
BUN Pending
Creatinine Pending
Glucose Pending
Calcium Pending
Vital Signs:
Vital Signs
Temp Pulse Resp BP Pulse Ox
98.3 F 71 18 185/102 97
08/26/24 07:30 08/26/24 08:02 08/26/24 07:30 08/26/24 08:02 08/26/24 07:30
I&O
08/25/24 08/26/24 08/27/24
06:59 06:59 06:59
Intake Total 240 / 240
Output Total 975 / 975
Balance -735 / -735
[2024-08-26 09:04] LABS: Blood Urea Nitrogen 27 mg/dl (9-20); Calcium 9.5 mg/dl (8.4-10.2); Carbon Dioxide 26 mmol/L (22-30); Chloride 112 mmol/L (98-107); Estimated Creatinine Clearance 28 ml/min; Glucose 130 mg/dl (70-99); Potassium 3.4 mmol/L (3.5-5.1); Sodium 143 mmol/L (135-145); eGFR 17.58
[2024-08-26 09:24] VITALS: BP 152/83
[2024-08-26 11:24] VITALS: BP 161/92
--- NOTE | 2024-08-26 13:09 | W.CON.NEPH ---
Consultation
-
Date/Time Consultation Requested: 08/25/246
Date/Time Consultation Performed: 08/26/24 1200
Requesting Provider: Forrest Judge
Performing Provider: imelda Vaughan
Reason for Consultation: CKD, HTN
Medical History
-
Chief Complaint: leg edema and HTN
History of Present Illness:
58-year-old male with PMH of HTN on Amlodipine, coreg, hydralazine, cardiomyopathy recovered EF on imdur, CVA with residual left hemiparesis on ASA, DM not on meds, HLD on statin, CKD 4vs 5 off PD since Feb 2024 presented from home for evaluation of
increased bilateral leg edema and elevated blood pressure 190/130s. Patient with recent hospitalization 07/02/2024 - 07/05/2024 for HTN and CKD -he ran out of medication at that time and blood pressure improved with resuming meds. Creatinine was
increasing up to 4.7 and was recommended to see his him specialists at [facility] Dr Guerrero, not sure if he had a follow-up or not, He still has a PD catheter. Reportedly he ran out of the medication again that it is after last discharge and was unable
to get medication fills out with his PCP. His cousin was visiting him on the weekend and noted to have a high blood pressure hands presented to the hospital. He is slow to respond baseline, history is limited. He offers no chest pain or
shortness of breath. No active nausea or vomiting or diarrhea. No abdominal pain.. His creatinine this admission is at 3.8. Nephrology consulted to obdulia BEARD. Has a chronic hypokalemia with potassium 3.4 today. He denies any dysuria.
Past Medical History
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
flash pulmonary edema due to acute systolic and diastolic heart failure November 2022
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
Cardiomyopathy
CHF recovered EF
HLD
DM
SHPTH
chronic anemia iron deficiency
HTN
Past Surgical History: Cholecystectomy and Other (left heart cath 2021)
Social History
Tobacco: Non-Smoker
Alcohol: None
Drug: None
Personal:
Living: Alone (Lives in [id number] at his cousins)
Employment: Disabled
Family History
Mother and father both alcoholics and smokers both , 1 brother renal failure, drug abuse, hypertension in his 40s 1 brother living unsure medical problems patient with 3 adult children 2 girls 1 boy healthy
Allergies / Home Medications
Allergy/AdvReac Type Severity Reaction Status Date / Time
No Known Allergies Allergy Unverified 08/25/24 15:07
�Medication �Instructions �Recorded �Confirmed �Type
amlodipine 10 mg tablet 10 mg PO DAILY Blood Pressure #30 07/05/24 08/25/24 Rx
tabs
aspirin 81 mg chewable tablet 81 mg PO DAILY Blood Clot 07/05/24 08/25/24 Rx
Prevention/Tx #30 tabs
atorvastatin 40 mg tablet 40 mg PO DAILY High Cholesterol 07/05/24 08/25/24 Rx
#30 tabs
carvedilol 25 mg tablet 25 mg PO BID Blood Pressure #60 07/05/24 08/25/24 Rx
tabs
hydralazine 100 mg tablet 100 mg PO TID Blood Pressure #90 07/05/24 08/25/24 Rx
tabs
isosorbide mononitrate 30 mg 30 mg PO DAILY #30 tabs 07/05/24 08/25/24 Rx
tablet,extended release 24 hr
Review of Systems
-
All other systems: Negative unless noted
Physical Exam
Vital Signs
Vital Signs
Temp Pulse Resp BP Pulse Ox
97.8 F 75 18 161/92 95
08/26/24 11:24 08/26/24 11:24 08/26/24 11:24 08/26/24 11:24 08/26/24 11:24
Lab Results
WBC 8.2 10^3/uL (4.8-10.8) 08/26/24 07:31
RBC 4.11 10^6/uL (4.70-6.10) L 08/26/24 07:31
Hgb 11.8 g/dL (13.0-18.0) L 08/26/24 07:31
Hct 37.6 % (39.0-52.0) L 08/26/24 07:31
Plt Count 189 10^3/uL (130-400) 08/26/24 07:31
Sodium 143 mmol/L (135-145) 08/26/24 07:31
Potassium 3.4 mmol/L (3.5-5.1) L 08/26/24 07:31
Chloride 112 mmol/L (98-107) H 08/26/24 07:31
Carbon Dioxide 26 mmol/L (22-30) 08/26/24 07:31
BUN 27 mg/dl (9-20) H 08/26/24 07:31
Creatinine 3.8 mg/dL (0.7-1.3) H 08/26/24 07:31
eGFR 17.58 08/26/24 07:31
Glucose 130 mg/dl (70-99) H 08/26/24 07:31
Calcium 9.5 mg/dl (8.4-10.2) 08/26/24 07:31
Cte-N-Rynlsqyeyuz Pept 3800 pg/ml 08/25/24 15:40
Albumin 3.5 g/dl (3.5-5.0) 08/25/24 15:40
Physical Exam
General: Awake, Alert, Oriented, No Distress and Nontoxic
HEENT: Anicteric, Conjunctivae Clear and Neck Supple
Respiratory: Clear, Normal Excursion and Nonlabored Respirations
Cardiac: S1/S2 and Regular Rate/Rhythm
Abdomen: Soft, Nontender and Nondistended
Musculoskeletal: Edema
Skin: No Rash
Neuro: Other (left hemiparesis)
Psych: Mood/afflect pleasant and Appropriate
Vascular Access: Other (PD catheter clean with chr scab )
Data Reviewed
-
Radiology: Report Reviewed by me and Discussed with Patient
Labs: Labs Reviewed by me and Discussed with Patient
Assessment/Plan
-
IMP:
Uncontrolled hypertension
Medication nonadherence
Nausea/vomiting
Hyperlipidemia
Stage IV chronic kidney disease previously on peritoneal dialysis-Dr Eden at [facility]
Chronic anemia
History of stroke in 2020 with left-sided weakness
Obesity due to excess calories
chronic diastolic CHF
PD catheter
Plan:
CKD-cr seem stable and better than last admit
not uremic or has vol issues , BNP lower than before and clear CXR
PD catheter removal to be set up through his nephro at [facility]
replace k, not on diuretics
Bp better after resuming meds
f/u nephro Dr Eden at [facility] and have ongoing transplant evaluation at [facility]
d/c plan per primary
--- NOTE | 2024-08-26 13:26 | VNURNOTE ---
Chart reviewed. Pt has memory impairment. Home Health Liaison spoke with patient's daughter Taisha to discuss [facility] nurse/therapy, visits, schedule and homebound status. She is agreeable and understands that visits at home will be 2-3 x per week to
assess and teach medical management. Taisha had questions about Assisted Living and was concerned that pt would not have enough help at home. Provided homemaker/metal mockup maker list via email: [email or web address]. Request send to [facility] to speak
w/daughter about Assisted Living - per daughter request.
Daughter is aware that [facility] will contact them for start of care in 1-2 days after discharge from if DC dispo is for home.
[facility] referral completed in [facility] Port.
--- NOTE | 2024-08-26 14:59 | W.DCSUMMARY ---
Discharge Summary
Discharge Data
Date of Admission: 08/25/24
Date of Discharge: 08/26/24
-
Pending Results: No
Hospital Course
Discharge diagnosis:
Uncontrolled hypertension
Medication noncompliance
Nausea/vomiting
Stage IV chronic kidney disease with history of peritoneal dialysis
Obesity due to excess calories
Consults: Nephrology
Hospital course:
58-year-old male with a past medical history of hypertension, medication noncompliance, stage IV CKD with history of peritoneal dialysis, and obesity was placed in observation secondary to uncontrolled hypertension. Patient reports running out of
his medications, and states his PCP would not refill his medications. Patient was seen in conjunction with nephrology, and resumed on his home antihypertensive regimen of amlodipine 10 mg daily, Coreg 25 mg twice a day, hydralazine 100 mg 3 times a
day, and Imdur 30 mg daily.
Nephrology recommends outpatient follow-up with his usual pattern grader Dr. Eden at [facility] to have ongoing transplant evaluation at [place]. Patient is to have his PD catheter removal with his usual pattern grader.
Patient had hypokalemia. This was repleted prior to discharge.
Patient also had transient nausea and vomiting. He received supportive care. He tolerated a diet prior to discharge.
Patient was provided with a 30-day supply of his prescription medications. He was counseled to follow-up with his PCP in 1-2 weeks, so he would be able to have his medications refilled. He reports understanding.
Disposition: Home self-care
Discharge planning: Required 37 minutes
Discharge Plan
-
Patient Disposition: Home with Home Care
Discharge Diagnosis/Procedures: Uncontrolled hypertension, nausea/vomiting
Condition: Fair
Diet: Low Cholesterol, Low Fiber and Low Sodium
Activity: As tolerated
Driving Restrictions: As prior to admission
Activity Restrictions/Additional Instructions:
It is very important that you follow-up with your primary care provider, so you can obtain refills for your prescriptions.
Please call to make a hospital follow-up appointment, they will see you in 1-2 weeks.
Referrals:
UNKNOWN - PT DOES,NOT KNOW [Family Provider]
Prescriptions:
Continued
aspirin 81 mg Tablet,Chewable
81 mg PO DAILY Qty: 30 0RF
atorvastatin 40 mg Tablet
40 mg PO DAILY Qty: 30 0RF
carvedilol 25 mg Tablet
25 mg PO BID Qty: 60 0RF
isosorbide mononitrate 30 mg Tablet Extended Release 24 Hr
30 mg PO DAILY Qty: 30 0RF
hydralazine 100 mg tablet
100 mg PO TID Qty: 90 0RF
amlodipine 10 mg tablet
10 mg PO DAILY Qty: 30 0RF
Discharge Orders:
Discharge Patient (As Directed); Ordered 08/26/24
Ordered By: Dakota Valdes
Discharge Date and Time
Discharge Date/Time: 08/26/24 16:09
Print Language: KOREAN
[2024-08-26 15:00] VITALS: BP 163/81
--- NOTE | 2024-08-26 15:21 | CM ---
Alert awake oriented patient who lives alone in a 3 story home with 3 step to enter.He is independent in all activities of daily living.He was offered VN he requested DAVID Pinto S liaison set up.Admission called to correct his number to
[phone]. He uses a cane. Pt said his cousin Marky will drive him home.Spoke with dgt Taisha who lives in [place].She was given information about [facility] waiver care givers.She wants pt to move in with her but pt resistant.Amie letter explained
to pt and dgt . Amie signed on chart.
[facility] VN hx / No SNF history
Pharmacy [facility]
PCP DR Oh Ellis
PLAN Home with [facility]
[2024-08-26] MEDS: KCL 20 MEQ PO (15:49)
== END 2024-08-26 16:09 | disposition home health service (06) ==
LOC: 4 EAST ACU 19:03
PROVIDERS: Nurse Practitioner Family; ADMITTING PHYSICIAN Hospitalist; ATTENDING PHYSICIAN Family Medicine; EMERGENCY PHYSICIAN Student in an Organized Health Care Education/Training Program; OTHER PHYSICIAN Internal Medicine
DX: I13.2 Hypertensive heart and chronic kidney disease with heart failure and with stage 5 chronic kidney disease, or end stage renal disease (principal); R60.0 Localized edema; I50.42 Chronic combined systolic (congestive) and diastolic (congestive) heart failure; Z91.148 Patient's other noncompliance with medication regimen for other reason; Z79.899 Other long term (current) drug therapy; R11.2 Nausea with vomiting, unspecified; E78.5 Hyperlipidemia, unspecified; Z99.2 Dependence on renal dialysis; N18.6 End stage renal disease; D64.9 Anemia, unspecified; E66.09 Other obesity due to excess calories; I69.354 Hemiplegia and hemiparesis following cerebral infarction affecting left non-dominant side; Z68.32 Body mass index [BMI] 32.0-32.9, adult
CPT/HCPCS: 71046; 80048; 80053; 81003; 81015; 83880; 84484; 85025; 85027; 93005; 96374; 99285; G0378

== ENCOUNTER 2025-02-24 10:13 | Emergency (ER) | payer MEDICARE, SELFPAY ==
[2025-02-24 10:22] VITALS: BP 160/95
[2025-02-24 10:24] VITALS: BP 160/95
[2025-02-24 10:27] VITALS: BMI 33.1
[2025-02-24 10:49] LABS: Hematocrit 32.9 % (39.0-52.0); Hemoglobin 10.3 g/dL (13.0-18.0); Mean Corp Hgb Conc. 31.3 g/dL (33.0-37.0); Mean Corpuscular Volume 88.9 fL (80.0-94.0); Nucleated Red Blood Cells % 0 % (-); Platelet Count 181 10^3/uL (130-400); Red Cell Dist. Width 14.2 % (11.5-14.5)
[2025-02-24 11:00] VITALS: BP 140/80
[2025-02-24 11:06] LABS: ALT (SGPT) 23 U/L (0-50); AST (SGOT) 29 U/L (17-59); Albumin 4.0 g/dl (3.5-5.0); Alkaline Phosphatase 78 U/L (38-126); Blood Urea Nitrogen 33 mg/dl (9-20); Calcium 9.6 mg/dl (8.4-10.2); Carbon Dioxide 26 mmol/L (22-30); Chloride 112 mmol/L (98-107); Estimated Creatinine Clearance 23 ml/min; Glucose 142 mg/dl (70-99); Potassium 3.7 mmol/L (3.5-5.1); Sodium 142 mmol/L (135-145); Total Protein 7.3 g/dl (6.3-8.2); eGFR 13.54
[2025-02-24 12:00] VITALS: BP 129/66
--- NOTE | 2025-02-24 12:39 | ED.GENMED ---
History of Present Illness
General
Chief Complaint: Blood Pressure Problem
Source: patient
Time Seen by Provider: 02/24/25 10:26
History of Present Illness
History of Present Illness:
Note:
CHIEF COMPLAINT(S)
Dizziness
HISTORY OF PRESENT ILLNESS
The patient is a 59-year-old male with a past medical history of hypertension, stroke, and chronic kidney disease currently undergoing dialysis, who presents with dizziness. He has been on Furosemide for an unspecified duration and reports that
dizziness began this morning after taking the medication. The dizziness persisted for approximately one to two hours and resolved prior to arrival at the emergency department. The patient experienced no dizziness at the time of the examination. The
patient suspects Furosemide as the cause, stating, �in a bottle, it says it can cause dizziness.� He has not experienced this side effect before. The patient ensures adequate hydration and has no recent changes in his condition except for the
current episode. There is pain noted on one side from sitting, but it improved with a pillow.
PAST MEDICAL AND SURIGICAL HISTORY
Hypertension, Stroke (first event in May 2019), Chronic Kidney Disease requiring dialysis
CHRONIC MEDICAL CONDITIONS SIGNIFICANTLY AFFECTING CARE
Hypertension
Chronic Kidney Disease
History of Stroke
SOCIAL DETERMINANTS AFFECTING HEALTH
The patient mentioned planning to check old records but no explicit social determinants affecting health were discussed.
EXTERNAL RECORDS REVIEWED
The patient referred to past admissions to the hospital and mentions under the care of a esthetician and manager medical spa based in [facility].
PHYSICAL EXAM
General: Alert, in no acute distress.
Skin: Warm, dry.
Head: Normocephalic, atraumatic.
Neck: Supple, trachea midline.
Eye Ears, nose, mouth and throat: Oral mucosa moist.
Cardiovascular: Normal peripheral perfusion, 2/6 systolic ejection murmur, regular heart rhythm, no edema.
Respiratory: Respirations are non-labored, lungs clear to auscultation.
Gastrointestinal: Abdomen nondistended.
Musculoskeletal: Normal range of motion, normal strength.
Neurological: Alert and oriented to person, place, time, and situation. Motor weakness in the left upper extremity due to the previous stroke. Cranial nerves intact.
Psychiatric: Cooperative, appropriate mood & affect.
PROBLEM LIST
Acute:
-Dizziness (likely secondary to Furosemide)
Chronic:
-Hypertension
-Stroke
-Chronic Kidney Disease (on dialysis)
PLAN
Well check blood work, including renal function and serum potassium, to ensure stability. If labs return within normal limits and vitals are stable, the patient will be discharged.
DIFFERENTIAL DIAGNOSIS
The Differential Diagnosis includes, in no particular order and is not limited to:
1. Drug-induced dizziness (Furosemide)
2. Dehydration
3. Orthostatic hypotension
4. Labyrinthitis
5. Vestibular neuronitis
6. Cardiovascular event
7. Stroke or transient ischemic attack
8. Electrolyte imbalance
9. Anemia
10. Infection (e.g., ear infection affecting balance)
EKG
My independent EKG interpretation is:
- Time of EKG not specified
- Rhythm not specified
- Heart rate: 84 bpm
- Normal axis
- Normal intervals (NV interval, QRS duration, QT interval)
- No ischemic changes observed
- No evidence of hyperkalemia noted on EKG
Disposition:
SUMMARY OF ENCOUNTER
A 59-year-old male presented to the emergency department with complaints of dizziness, which began after taking Furosemide. The dizziness resolved prior to his arrival. The patient has a history of hypertension, stroke, and chronic kidney disease
with an AV graft, currently undergoing dialysis. The patients exam and EKG findings were non-acute, and lab results did not indicate immediate concerns, showing chronic kidney failure with creatinine at 4.7, normal sodium, potassium, liver function
tests (LFTs), and complete blood count (CBC). As there were no signs of volume overload and the patients clinical status was stable, he was deemed safe for discharge with outpatient follow-up.
DISPOSITION
Discharge
ASSESSMENT
It is suspected that the dizziness was likely secondary to the administration of Furosemide, as the episode coincided with its intake and resolved spontaneously.
PLAN
Monitor renal function and ensure the patient remains stable. Follow up with outpatient services for further management of chronic conditions.
INDEPENDENT REVIEW OF LABS AND INTERPRETATION OF TESTS
My independent review of the chemistry panel indicates chronic kidney failure with a creatinine level of 4.7. Sodium and potassium levels are normal. Blood sugar is 142. Liver function tests are normal. The complete blood count is normal. My
independent EKG interpretation shows the patient has maintained a normal sinus rhythm during the ED evaluation.
PATIENT EDUCATION AND COUNSELING
The patient was advised about the potential side effects of Furosemide, including dizziness. Recommendations were made to monitor for recurrent symptoms and ensure adequate hydration.
FOLLOW-UP INSTRUCTIONS
The patient should follow up with his primary care provider and manage his chronic conditions with outpatient services, particularly with regards to dialysis scheduling and monitoring.
MEDICATION RECONCILIATION
The patient reported recent administration of Furosemide.
MEDICAL DECISION MAKING
- Number and Complexity of Problems Addressed: Chronic conditions affecting care: Hypertension, Stroke, Chronic Kidney Disease. Differential diagnosis included drug-induced dizziness, dehydration, orthostatic hypotension, labyrinthitis, vestibular
neuronitis, cardiovascular event, stroke or transient ischemic attack, electrolyte imbalance, anemia, infection.
- Data:
Category 1: Reviewed lab tests including creatinine, sodium, potassium, blood sugar, LFTs, and CBC. My independent EKG interpretation was performed.
Category 2: Reviewed external records indicating chronic conditions and current management strategy.
- Risk: Prescription medication was managed in ED, monitoring symptoms for toxicity and ensuring patient safety before discharge. Consideration of Admission/Observation: Escalation of care including admission/observation was considered given the
complexity and risk of the patients presenting complaint, exam findings, and/or underlying comorbidities. However, ultimately he is safe for outpatient management with close follow-up.
DIAGNOSIS
1. Drug-induced dizziness (suspected due to Furosemide intake) - ICD-10 R42
2. Chronic Kidney Disease, stage 5 (requiring dialysis) - ICD-10 N18.5
3. Hypertension - ICD-10 I10
4. History of Stroke - ICD-10 Z86.73
Past History
Past History
ED Past Medical History: CVA and HTN
ED Past Surgical History: Orthopedic
Social History
Tobacco: Non-smoker
Living: with family
Employment: Employed
Family History
Family History: Hypertension
Phy Exam
Physical Exam
Physical Exam:
.
Course
Orders/Labs/Results
Orders:
Orders
02/24/25 10:23
EKG [Electrocardiogram (*1)] Urgent
Reason for Study: Fatigue / Weakness
02/24/25 10:24
EKG- Treatment ONCE
02/24/25 10:33
Complete Blood Count/With Diff Urgent
Comprehensive Metabolic Panel Urgent
Abnormal Lab Results
02/24/25
10:33
RBC 3.70 L 10^6/uL
(4.70-6.10)
Hgb 10.3 L g/dL
(13.0-18.0)
Hct 32.9 L %
(39.0-52.0)
MCHC 31.3 L g/dL
(33.0-37.0)
MPV 10.6 H fL
(7.4-10.4)
Lymphocytes % 16.0 L %
(20.5-51.1)
Chloride 112 H mmol/L
(98-107)
BUN 33 H mg/dl
(9-20)
Creatinine 4.7 H* mg/dL
(0.7-1.3)
Glucose 142 H mg/dl
(70-99)
02/24/25 10:33
02/24/25 10:33
Vital Signs
Initial and Last Documented VS:
Initial Vital Signs
BP
160/95
02/24/25 10:22
Last Documented Vital Signs
Temp Pulse Resp BP Pulse Ox
97.6 F 75 14 130/74 99
02/24/25 10:24 02/24/25 13:00 02/24/25 13:00 02/24/25 13:00 02/24/25 12:40
*Pulse Oximetry
SaO2: 99
Oxygen Mode of Delivery: Room air
Patient hypoxic: no
*Critical Care Note
Total Time (30-74mins, 75-104mins- exclusive of procedures): Not Applicable
ED Attending Note
-
Portions of this chart may have been created with voice recognition software.� Occasional wrong word or��sound alike� substitutions may have occurred due to the inherent limitations of voice recognition software.
Discharge Plan
Departure
Patient Disposition: Home (Routine Discharge)
Date of Disposition: 02/24/25
Time of Disposition: 12:39
Patient with high blood pressure during this ER visit?: Yes
Discharge Problem:
Dizziness
Instructions: Dizziness in adults - ED (DC), BLOOD PRESSURE
Prescriptions:
No Action
aspirin 81 mg Tablet,Chewable
81 mg PO DAILY Qty: 30 0RF
atorvastatin 40 mg Tablet
40 mg PO DAILY Qty: 30 0RF
carvedilol 25 mg Tablet
25 mg PO BID Qty: 60 0RF
isosorbide mononitrate 30 mg Tablet Extended Release 24 Hr
30 mg PO DAILY Qty: 30 0RF
hydralazine 100 mg tablet
100 mg PO TID Qty: 90 0RF
amlodipine 10 mg tablet
10 mg PO DAILY Qty: 30 0RF
metolazone 2.5 mg Tablet
2.5 mg PO DAILY
Referrals:
UNKNOWN - PT DOES,NOT KNOW [Family Provider]
Interventions
Interventions:
*Risk Screen - Suicide Last Done: 02/24/25 10:29
*General Assessment Last Done: 02/24/25 10:27
*Neglect/Abuse Screening Last Done: 02/24/25 10:29
*ED COVID-19 Vaccine History Last Done: 02/24/25 10:27
*ED Influenza Vaccine History Last Done: 02/24/25 10:27
[facility] Fall Risk Assessment Tool Last Done: 02/24/25 13:52
*Nursing Disposition Last Done: 02/24/25 13:55
ED- Cardiac Assessment Last Done: 02/24/25 12:00
ED- Neurological Assessment Last Done: 02/24/25 12:00
ED- Pulmonary Assessment Last Done: 02/24/25 12:00
Discharge Date and Time
Discharge Date/Time: 02/24/25 13:57
Print Language: ZAMBIAN
[2025-02-24 13:00] VITALS: BP 130/74
== END 2025-02-24 13:57 | disposition home or self-care (01) ==
LOC: EMR 10:13
PROVIDERS: EMERGENCY PHYSICIAN Emergency Medicine
DX: R42 Dizziness and giddiness (principal); I12.0 Hypertensive chronic kidney disease with stage 5 chronic kidney disease or end stage renal disease; N18.6 End stage renal disease; Z99.2 Dependence on renal dialysis; Z86.73 Personal history of transient ischemic attack (TIA), and cerebral infarction without residual deficits
CPT/HCPCS: 99284; 80053; 85025; 93005